=== PATIENT | male | born 1965 | race African-American/Black ===

== ENCOUNTER 2018-01-09 22:59 | Emergency (ER) | payer BC ==
[2018-01-10] MEDS ORDERED: KETOROLAC 30 MG/ML INJ ONE (00:38)
[2018-01-10] MEDS ORDERED: NA CHLORIDE 0.9% 1,000 ML ONE (00:39)
[2018-01-10 00:57] LABS: Absolute Lymphocytes (CBC) 2.3 K/uL (0.7-4.9); Absolute Monocytes 0.8 K/uL (0.1-1.3); Absolute Neutrophil 5.3 K/uL (1.8-8.0); Basophils % 0.9 % (0-1.3); Eosinophils % 4.2 % (0-4.4); Hematocrit 43.4 % (39.6-49.0); Lymphocytes % 26.2 % (15.3-44.8); MCH 28.8 pg (27.0-35.0); MCV 86.5 fL (80-100); MPV 9.4 fL (7.6-11.3); Monocytes % 8.6 % (3.3-12.3); RBC Red Blood Cell Count 5.01 M/uL (4.33-5.43)
[2018-01-10 01:11] LABS: Urine Blood NEGATIVE (NEG); Urine Glucose NEGATIVE (NEG); Urine Protein NEGATIVE (NEG); Urine Specific Gravity >1.030 (1.005-1.030)
[2018-01-10 01:21] LABS: Bicarbonate 26 mEq/L (21-31); Glucose Level 101 mg/dL (65-120); Lipase 32 U/L (22-51); Potassium 3.9 mEq/L (3.6-5.0); Sodium Level 139 mEq/L (135-145)
[2018-01-10 01:23] LABS: Urine Bacteria <20 /HPF (NONE SEEN); Urine RBC <5 /HPF (NONE SEEN)
[2018-01-10 01:24] LABS: Urine Culture Reflex Order NOT NEEDED
[2018-01-10 01:27] LABS: ALT/SGPT 29 IU/L (10-60); AST/SGOT 31 IU/L (10-42); Alkaline Phosphatase 53 IU/L (42-121); Amylase Level 97 U/L (28-100); BUN Blood Urea Nitrogen 20 mg/dL (6-20); Bilirubin Direct < 0.1 mg/dL (0-0.2); Bilirubin Total 0.4 mg/dL (0.3-1.2); Protein, Total 6.9 g/dL (6.0-8.3)
--- NOTE | 2018-01-10 03:14 | ER ---
Nurse's Notes [facility] Name: Sheng Dominguez Age: 52 yrs Sex: Male : 1965 Arrival Date: 01/09/2018 Time: 23:00 Bed 8 Private MD: Diagnosis: Low back pain Presentation: 01/09 23:22 Presenting complaint: Patient states: back and R flank pain since 1999 this evening. aa1 Transition of care: patient was not received from another setting of care. Onset of symptoms was January 09, 2018. Initial Sepsis Screen: Does the patient meet any 2 criteria? No. Patient's initial sepsis screen is negative. Does the patient have a suspected source of infection? No. Patient's initial sepsis screen is negative. Care prior to arrival: None. 23:22 Method Of Arrival: Ambulatory aa1 23:22 Acuity: SRAVAN 3 aa1 Triage Assessment: 23:22 General: Appears in no apparent distress. comfortable, Behavior is calm, cooperative, aa1 appropriate for age. Historical: - Allergies: 23:22 No Known Allergies; aa1 - Home Meds: 23:22 amlodipine oral [Active]; aa1 - PMHx: 23:22 CVA; Hypertension; aa1 - PSHx: 23:22 None; aa1 - Immunization history:: Flu vaccine is not up to date. - Social history:: Smoking status: Patient/guardian denies using tobacco. Screenin/14 00:04 Abuse screen: Denies threats or abuse. Denies injuries from another. Nutritional ao screening: No deficits noted. Tuberculosis screening: No symptoms or risk factors identified. Fall Risk None identified. Assessment: 00:02 General: Appears in no apparent distress. comfortable. Pain: Complains of pain in right ao side flank. Neuro: Level of Consciousness is awake, alert, obeys commands, Oriented to person, place, time, situation, Appropriate for age Moves all extremities. Speech is normal, Facial symmetry appears normal. Cardiovascular: Patient's skin is warm and dry. Respiratory: Airway is patent Respiratory effort is even, unlabored, Respiratory pattern is regular, symmetrical. GI: Abdomen is non-distended. GI: Reports nausea. : Reports urinary frequency. EENT: No signs and/or symptoms were reported regarding the EENT system. Derm: Skin is intact, Skin is pink, warm \T\ dry. Skin temperature is warm. Musculoskeletal: Range of motion: intact in all extremities. 01:10 Reassessment: Patient appears in no apparent distress at this time. Patient and/or ao family updated on plan of care and expected duration. Pain level reassessed. Patient is alert, oriented x 3, equal unlabored respirations, skin warm/dry/pink. Waiting on CT results. 02:16 Reassessment: Patient appears in no apparent distress at this time. Patient and/or ao family updated on plan of care and expected duration. Pain level reassessed. Patient is alert, oriented x 3, equal unlabored respirations, skin warm/dry/pink. Waiting on dispo. 03:20 Reassessment: Patient appears in no apparent distress at this time. Patient and/or ao family updated on plan of care and expected duration. Pain level reassessed. Patient is alert, oriented x 3, equal unlabored respirations, skin warm/dry/pink. 03:56 Reassessment: Patient DC home. Patient understand the POC and to follow up with PCP. ao Vital Signs: 01/09 23:22 BP 147 / 89; Pulse 58; Resp 18; Temp 97.4; Pulse Ox 98% on R/A; Weight 113.4 kg; Height aa1 6 ft. 1 in. (185.42 cm); Pain 8/10; 01/10 01:10 BP 137 / 82; Pulse 63; Resp 14; Pulse Ox 99% on R/A; Pain 0/10; ao 02:30 BP 138 / 62; Pulse 62; Resp 18; Pulse Ox 99% on R/A; ao 03:56 BP 140 / 59; Pulse 55; Resp 18; Pulse Ox 100% on R/A; Pain 6/10; ao 01/09 23:22 Body Mass Index 32.98 (113.40 kg, 185.42 cm) aa1 ED Course: 01/09 23:00 Patient arrived in ED. ds1 23:22 Triage completed. aa1 23:22 Arm band placed on right wrist. Patient placed in waiting room, Patient notified of aa1 wait time. 23:50 Rony Avery, GEORGIE is Primary Nurse. ao 01/10 00:03 Lambert Sanchez MD is Attending Physician. tw4 00:05 Patient has correct armband on for positive identification. Pulse ox on. NIBP on. ao 00:41 Inserted saline lock: 20 gauge in right forearm, using aseptic technique. Blood ao collected. 01:15 Stone Protocol In Process Unspecified. EDMS 01:47 CT completed. Patient tolerated procedure well. Patient moved to CT via wheelchair. Patient moved back from CT. 03:55 No provider procedures requiring assistance completed. IV discontinued, intact, ao bleeding controlled, No redness/swelling at site. Pressure dressing applied. Administered Medications: 00:42 Drug: NS 0.9% 1000 ml Route: IV; Rate: 1 bolus; Site: right forearm; ao 00:43 Drug: TORadol 30 mg Route: IVP; Site: right forearm; ao Outcome: 03:13 Discharge ordered by . tw4 03:55 Discharged to home ambulatory. ao 03:55 Condition: stable 03:55 Discharge instructions given to patient, Instructed on discharge instructions, follow up and referral plans. Demonstrated understanding of instructions, follow-up care, medications, Prescriptions given X 3. 03:57 Patient left the ED. ao Signatures: Dispatcher [employer] EDHellen Bonner, RN RN Dimitry Bedolla Demi ds1 Rony Avery RN RN ao Wadley, Terrence, MD MD tw4
--- NOTE | 2018-01-10 03:14 | EDPHYS ---
Physician Documentation [facility] Name: Sheng Dominguez Age: 52 yrs Sex: Male : 1965 Arrival Date: 01/09/2018 Time: 23:00 Bed 8 Private MD: ED Physician Lambert Sanchez HPI: 01/10 00:36 This 52 yrs old Black Male presents to ER via Ambulatory with complaints of Back Pain, tw4 Side Pain. 00:36 The patient presents with pain that is acute, with no known mechanism of injury. The tw4 symptoms are located in the low back. Onset: The symptoms/episode began/occurred yesterday. The pain radiates to the groin, right femoral area and right inguinal area. Associated signs and symptoms: The patient has no apparent associated signs or symptoms. The problem was sustained without known cause, from unknown cause. Modifying factors: The patient symptoms are alleviated by rest, the patient symptoms are aggravated by lifting, movement. The patient has not experienced similar symptoms in the past. Historical: - Allergies: 01/09 23:22 No Known Allergies; aa1 - Home Meds: 23:22 amlodipine oral [Active]; aa1 - PMHx: 23:22 CVA; Hypertension; aa1 - PSHx: 23:22 None; aa1 - Immunization history:: Flu vaccine is not up to date. - Social history:: Smoking status: Patient/guardian denies using tobacco. ROS: 01/10 00:36 Constitutional: Negative for fever, chills, and weight loss, Cardiovascular: Negative tw4 for chest pain, palpitations, and edema, Respiratory: Negative for shortness of breath, cough, wheezing, and pleuritic chest pain, Abdomen/GI: Negative for abdominal pain, nausea, vomiting, diarrhea, and constipation. MS/Extremity: Negative for injury and deformity, Skin: Negative for injury, rash, and discoloration, Neuro: Negative for headache, weakness, numbness, tingling, and seizure. Back: Positive for pain with movement, flank pain, on the right, radiated pain. Back: Positive for Negative for injury or acute deformity. Exam: 00:36 Constitutional: This is a well developed, well nourished patient who is awake, alert, tw4 and in no acute distress. Head/Face: Normocephalic, atraumatic. Chest/axilla: Normal chest wall appearance and motion. Nontender with no deformity. No lesions are appreciated. Cardiovascular: Regular rate and rhythm with a normal S1 and S2. No gallops, murmurs, or rubs. Normal PMI, no JVD. No pulse deficits. Respiratory: Lungs have equal breath sounds bilaterally, clear to auscultation and percussion. No rales, rhonchi or wheezes noted. No increased work of breathing, no retractions or nasal flaring. Abdomen/GI: Soft, non-tender, with normal bowel sounds. No distension or tympany. No guarding or rebound. No evidence of tenderness throughout. 00:36 Back: pain, that is mild, ROM is normal, normal spinal alignment noted, CVA tenderness, is noted on the right. Vital Signs: 01/09 23:22 BP 147 / 89; Pulse 58; Resp 18; Temp 97.4; Pulse Ox 98% on R/A; Weight 113.4 kg; Height aa1 6 ft. 1 in. (185.42 cm); Pain 8/10; 01/10 01:10 BP 137 / 82; Pulse 63; Resp 14; Pulse Ox 99% on R/A; Pain 0/10; ao 02:30 BP 138 / 62; Pulse 62; Resp 18; Pulse Ox 99% on R/A; ao 03:56 BP 140 / 59; Pulse 55; Resp 18; Pulse Ox 100% on R/A; Pain 6/10; ao 01/09 23:22 Body Mass Index 32.98 (113.40 kg, 185.42 cm) aa1 MDM: 00:03 Patient medically screened. [facility] 05:27 Data reviewed: vital signs, nurses notes. Counseling: I had a detailed discussion with [facility] the patient and/or guardian regarding: the historical points, exam findings, and any diagnostic results supporting the discharge/admit diagnosis, lab results, radiology results. Medication response: Toradol markedly relieved the patient's pain. Response to treatment: the patient's symptoms have markedly improved after treatment, and as a result, I will discharge patient. Special discussion: I discussed with the patient/guardian in detail that at this point there is no indication for admission to the hospital. It is understood, however, that if the symptoms persist or worsen the patient needs to return immediately for re-evaluation. 01/10 00:10 Order name: Amylase, Serum tw4 01/10 00:10 Order name: Basic Metabolic Panel tw4 01/10 00:10 Order name: CBC with Diff 4 01/10 00:10 Order name: Creatinine for Radiology tw4 01/10 00:10 Order name: Hepatic Function tw4 01/10 00:10 Order name: Lipase tw4 01/10 00:10 Order name: Urine Microscopic Only tw4 01/10 00:10 Order name: IV Saline Lock; Complete Time: 00:43 tw4 01/10 00:10 Order name: Labs collected and sent; Complete Time: 00:43 tw4 01/10 00:17 Order name: Urine Dipstick--Ancillary (enter results) [facility] 01/10 00:37 Order name: Stone Protocol [facility] 01/10 00:10 Order name: Urine Dipstick-Ancillary (obtain specimen); Complete Time: 00:43 tw4 Administered Medications: 00:42 Drug: NS 0.9% 1000 ml Route: IV; Rate: 1 bolus; Site: right forearm; ao 00:43 Drug: TORadol 30 mg Route: IVP; Site: right forearm; ao Disposition: 01/10/18 03:13 Discharged to Home. Impression: Low back pain. - Condition is Stable. - Discharge Instructions: Back Pain, Adult, Musculoskeletal Pain, Pain Without a Known Cause, Back Pain, Adult, [id number]. - Prescriptions for Ibuprofen 800 mg Oral Tablet - take 1 tablet by ORAL route every 8 hours As needed take with food; 30 tablet. Tylenol- Codeine #3 300-30 mg Oral Tablet - take 2 tablet by ORAL route every 6 hours As needed; 6 tablet. Cyclobenzaprine 10 mg Oral Tablet - take 1 tablet by ORAL route every 8 hours As needed; 30 tablet. - Medication Reconciliation Form, Thank You Letter, Antibiotic Education, Prescription Opioid Use form. - Follow up: Private Physician; When: Upon discharge from the Emergency Department; Reason: Recheck today's complaints, Continuance of care, Re-evaluation by your physician. - Problem is new. - Symptoms have improved. Signatures: Dispatcher [employer] Hellen Clark RN RN aa1 Rony Avery RN RN ao Wadley, Terrence, MD MD tw4 Corrections: (The following items were deleted from the chart) 00:37 00:27 Abdomen Pelvis Wo Con+CT.RAD.BRZ ordered. EDMS EDMS 03:57 03:13 01/10/2018 03:13 Discharged to Home. Impression: Low back pain. Condition is ao Stable. Forms are Medication Reconciliation Form, Thank You Letter, Antibiotic Education, Prescription Opioid Use. Follow up: Private Physician; When: Upon discharge from the Emergency Department; Reason: Recheck today's complaints, Continuance of care, Re-evaluation by your physician. Problem is new. Symptoms have improved. tw4
--- NOTE | 2018-01-10 08:34 | RAD REPORT ---
EXAM DESCRIPTION: CT - Stone Protocol - 01/10/2018 3:42 am CLINICAL HISTORY: Flank pain. COMPARISON: 07/28/2016 TECHNIQUE: Axial images were obtained without oral or IV contrast. Lack of contrast limits solid org an and vascular assessment. The [id number] spans the entirety of the system partially obscuring uppermost abdomen and lung bases. Coronal reformatted images were obtained and reviewed. All CT scans are performed using dose optimization technique as appropriate and may include automated exposure control or mA/KV adjustment according to patient size. FINDINGS: The lower lung white are clear. Imaged portions of the liver and spleen show no suspicious findings on non-contrast imaging. The panc reas and adrenal glands are normal. No pathologic lymphadenopathy in the abdomen or pelvis. No urinary tract stones or obstructive uropathy. No bowel obstruction, free air, free fluid or abscess. Normal appendix noted. Chronic bilateral L5-S1 spondylolysis. IMPRESSION: No urinary tract stones or obstructive uropathy.
== END 2018-01-10 03:57 | disposition home or self-care (01) ==
LOC: ER 22:59
DX: M54.5 Low back pain (principal); I10 Essential (primary) hypertension; Z86.73 Personal history of transient ischemic attack (TIA), and cerebral infarction without residual deficits
CPT/HCPCS: 36415; 74176; 76377; 80048; 80076; 81003; 81015; 82150; 83690; 85025; 96374; 99284; J7030

== ENCOUNTER 2019-01-29 21:28 | Emergency (ER) | payer BC ==
[2019-01-29] MEDS ORDERED: CYCLOBENZAPRINE 10 MG TAB ONE (22:42)
[2019-01-29] MEDS ORDERED: HYDROCODONE/APAP 10/325 TAB ONE (22:43)
--- NOTE | 2019-01-29 23:00 | EDPHYS ---
Physician Documentation [facility] Name: Sheng Dominguez Age: 53 yrs Sex: Male : 1965 Arrival Date: 01/29/2019 Time: 21:29 Bed 2 Private MD: ED Physician Jose Angel Campos HPI: 01/29 22:35 This 53 yrs old Black Male presents to ER via Ambulatory with complaints of Low Back pm1 Pain. 22:35 The patient presents with pain that is acute. The symptoms are located in the low back. pm1 The pain does not radiate. The problem was sustained playing sports, softball. Onset: The symptoms/episode began/occurred 1 week(s) ago. Modifying factors: The patient symptoms are alleviated by remaining still, specific position, the patient symptoms are aggravated by movement. Associated signs and symptoms: Pertinent negatives: abdominal pain, chest pain, dysuria, fever, nausea, numbness, tingling, vomiting, weakness. Severity of symptoms: in the emergency department the symptoms are unchanged. The patient has not experienced similar symptoms in the past. The patient has not recently seen a physician. Historical: - Allergies: 21:45 No Known Allergies; ak1 - Home Meds: 21:45 amlodipine oral [Active]; ak1 - PMHx: 21:45 CVA; Hypertension; ak1 - PSHx: 21:45 hardware in right shoulder; ak1 - Immunization history:: Adult Immunizations unknown. - Social history:: Smoking status: Patient/guardian denies using tobacco. - Ebola Screening: : No symptoms or risks identified at this time. ROS: 22:35 Constitutional: Negative for fever, chills, and weight loss, Eyes: Negative for injury, pm1 pain, redness, and discharge, ENT: Negative for injury, pain, and discharge, Neck: Negative for injury, pain, and swelling, Cardiovascular: Negative for chest pain, palpitations, and edema, Respiratory: Negative for shortness of breath, cough, wheezing, and pleuritic chest pain, Abdomen/GI: Negative for abdominal pain, nausea, vomiting, diarrhea, and constipation. 22:35 : Negative for injury, bleeding, discharge, and swelling, MS/Extremity: Negative for injury and deformity, Skin: Negative for injury, rash, and discoloration, Neuro: Negative for headache, weakness, numbness, tingling, and seizure. 22:35 Back: Positive for pain with movement, of the left low back and right low back, Negative for decreased range of motion. Exam: 22:35 Constitutional: This is a well developed, well nourished patient who is awake, alert, pm1 and in no acute distress. Head/Face: Normocephalic, atraumatic. Eyes: Pupils equal round and reactive to light, extra-ocular motions intact. Lids and lashes normal. Conjunctiva and sclera are non-icteric and not injected. Cornea within normal limits. Periorbital areas with no swelling, redness, or edema. ENT: Nares patent. No nasal discharge, no septal abnormalities noted. Tympanic membranes are normal and external auditory canals are clear. Oropharynx with no redness, swelling, or masses, exudates, or evidence of obstruction, uvula midline. Mucous membranes moist. Neck: Trachea midline, no thyromegaly or masses palpated, and no cervical lymphadenopathy. Supple, full range of motion without nuchal rigidity, or vertebral point tenderness. No Meningismus. Chest/axilla: Normal chest wall appearance and motion. Nontender with no deformity. No lesions are appreciated. Cardiovascular: Regular rate and rhythm with a normal S1 and S2. No gallops, murmurs, or rubs. Normal PMI, no JVD. No pulse deficits. Respiratory: Lungs have equal breath sounds bilaterally, clear to auscultation and percussion. No rales, rhonchi or wheezes noted. No increased work of breathing, no retractions or nasal flaring. Abdomen/GI: Soft, non-tender, with normal bowel sounds. No distension or tympany. No guarding or rebound. No evidence of tenderness throughout. 22:35 Skin: Warm, dry with normal turgor. Normal color with no rashes, no lesions, and no evidence of cellulitis. MS/ Extremity: Pulses equal, no cyanosis. Neurovascular intact. Full, normal range of motion. 22:35 Back: normal spinal alignment noted, vertebral tenderness, is not appreciated, muscle spasm, is appreciated in the left low back and right low back. 22:35 Neuro: Orientation: is normal, Motor: is normal, moves all fours, strength is normal, strength is 5/5 in all extremities, Sensation: is normal, no obvious gross deficits, Gait: is steady, at a normal pace, without difficulty. Vital Signs: 21:45 BP 157 / 105; Pulse 73; Resp 16; Temp 97.6(O); Pulse Ox 96% on R/A; Weight 113.4 kg ak1 (R); Height 6 ft. 1 in. (185.42 cm) (R); Pain 8/10; 22:33 BP 143 / 89; Pulse 70; Resp 16; Temp 97.8; Pulse Ox 96% on R/A; ak1 01/30 01:53 BP 133 / 86; Pulse 55; Resp 14; Temp 98.1; Pulse Ox 100% on R/A; Pain 0/10; ak1 01/29 21:45 Body Mass Index 32.98 (113.40 kg, 185.42 cm) ak1 MDM: 01/29 22:11 Patient medically screened. pm1 22:15 Data reviewed: vital signs. Data interpreted: Pulse oximetry: on room air is 96 %. pm1 Interpretation: normal. 22:58 Counseling: I had a detailed discussion with the patient and/or guardian regarding: the pm1 historical points, exam findings, and any diagnostic results supporting the discharge/admit diagnosis, lab results, the need for outpatient follow up, to return to the emergency department if symptoms worsen or persist or if there are any questions or concerns that arise at home. 01/29 23:06 Order name: CBC with Diff; Complete Time: 00:04 pm1 01/29 23:06 Order name: BMP; Complete Time: 00:32 pm1 01/29 23:06 Order name: CT Stone Protocol pm1 01/29 23:12 Order name: Urine Dipstick--Ancillary (enter results); Complete Time: 00:51 2 01/29 22:16 Order name: Urine Dipstick-Ancillary (obtain specimen); Complete Time: 23:08 pm1 Administered Medications: 22:32 Drug: Flexeril 10 mg Route: PO; ak1 23:07 Follow up: Response: No adverse reaction ak1 22:32 Drug: [place] 10 mg-325 mg 1 tabs Route: PO; ak1 23:08 Follow up: Response: No adverse reaction ak1 Disposition: 01/30 01:56 Co-signature as Attending Physician, Jose Angel Campos MD. pkl Disposition: 01/30/19 01:34 Discharged to Home. Impression: Low back pain. - Condition is Stable. - Discharge Instructions: Back Pain, Adult, Musculoskeletal Pain, Back Injury Prevention, [id number]. - Prescriptions for Naprosyn 500 mg Oral Tablet - take 1 tablet by ORAL route 2 times per day take with food; 30 tablet. Tylenol- Codeine #3 300-30 mg Oral Tablet - take 2 tablets by ORAL route every 6 hours As needed; 20 tablet. Cyclobenzaprine 10 mg Oral Tablet - take 1 tablet by ORAL route every 8 hours As needed; 30 tablet. - Medication Reconciliation Form, Thank You Letter, Antibiotic Education, Prescription Opioid Use form. - Follow up: Emergency Department; When: As needed; Reason: Worsening of condition. Follow up: Private Physician; When: 2 - 3 days; Reason: Recheck today's complaints, Continuance of care, Re-evaluation by your physician. - Problem is new. - Symptoms have improved. Signatures: Dispatcher [employer] EDMS Jose Angel Campos MD MD pkl Krenek, Amber RN RN ak1 Porfirio Rubin, LOR[employer]EL[employer] pm1 Corrections: (The following items were deleted from the chart) 01/29 23:06 22:59 01/29/2019 22:59 Discharged to Home. Impression: Low back pain; Muscle spasm of pm1 back. Condition is Stable. Forms are Medication Reconciliation Form, Thank You Letter, Antibiotic Education, Prescription Opioid Use. Follow up: Emergency Department; When: As needed; Reason: Worsening of condition. Follow up: Private Physician; When: 2 - 3 days; Reason: Recheck today's complaints, Continuance of care, Re-evaluation by your physician. Problem is new. Symptoms have improved. pm1 01/30 01:55 01:34 01/30/2019 01:34 Discharged to Home. Impression: Low back pain. Condition is ak1 Stable. Forms are Medication Reconciliation Form, Thank You Letter, Antibiotic Education, Prescription Opioid Use. Follow up: Emergency Department; When: As needed; Reason: Worsening of condition. Follow up: Private Physician; When: 2 - 3 days; Reason: Recheck today's complaints, Continuance of care, Re-evaluation by your physician. Problem is new. Symptoms have improved. pm1
--- NOTE | 2019-01-29 23:00 | ER ---
Nurse's Notes [facility] Name: Sheng Dominguez Age: 53 yrs Sex: Male : 1965 Arrival Date: 01/29/2019 Time: 21:29 Bed 2 Private MD: Diagnosis: Low back pain Presentation: 01/29 21:43 Presenting complaint: Patient states: lower back pain since Wednesday. pt stated ak1 increased pain Wednesday. Transition of care: patient was not received from another setting of care. Onset of symptoms is unknown. Risk Assessment: Do you want to hurt yourself or someone else? Patient reports no desire to harm self or others. Initial Sepsis Screen: Does the patient meet any 2 criteria? No. Patient's initial sepsis screen is negative. Does the patient have a suspected source of infection? No. Patient's initial sepsis screen is negative. Note pt stated he is not taking his blood pressure medication because it makes him sleepy. Care prior to arrival: None. 21:43 Method Of Arrival: Ambulatory ak1 21:43 Acuity: SRAVAN 4 ak1 Triage Assessment: 21:45 General: Appears in no apparent distress. Behavior is calm, cooperative. Pain: ak1 Complains of pain in lumbar area, sacrum, left low back and right low back. Historical: - Allergies: 21:45 No Known Allergies; ak1 - Home Meds: 21:45 amlodipine oral [Active]; ak1 - PMHx: 21:45 CVA; Hypertension; ak1 - PSHx: 21:45 hardware in right shoulder; ak1 - Immunization history:: Adult Immunizations unknown. - Social history:: Smoking status: Patient/guardian denies using tobacco. - Ebola Screening: : No symptoms or risks identified at this time. Screenin:45 Abuse screen: Denies threats or abuse. Denies injuries from another. Nutritional ak1 screening: No deficits noted. Tuberculosis screening: No symptoms or risk factors identified. Fall Risk None identified. Assessment: 22:20 General: Appears in no apparent distress. Behavior is calm, cooperative. Pain: ak1 Complains of pain in back and right low back and left low back and sacrum and lumbar area. Neuro: Level of Consciousness is awake, alert, obeys commands, Oriented to person, place, time, situation, Returns Supervisor are equal bilaterally Moves all extremities. Gait is steady, Speech is normal, Facial symmetry appears normal. Cardiovascular: No deficits noted. Respiratory: No deficits noted. GI: No signs and/or symptoms were reported involving the gastrointestinal system. : No signs and/or symptoms were reported regarding the genitourinary system. EENT: No signs and/or symptoms were reported regarding the EENT system. Derm: No signs and/or symptoms reported regarding the dermatologic system. Musculoskeletal: Range of motion: intact in all extremities, Reports pain in sacrum and lumbar area pt denies injury. 23:42 Reassessment: Patient appears in no apparent distress at this time. No changes from ak1 previously documented assessment. pt resting with eyes closed in ER2, resp even and unlabored. 01/30 01:53 Reassessment: Patient appears in no apparent distress at this time. No changes from ak1 previously documented assessment. Patient and/or family updated on plan of care and expected duration. Pain level reassessed. Patient is alert, oriented x 3, equal unlabored respirations, skin warm/dry/pink. pt with steady gait at discharge. Patient denies pain at this time. Patient states feeling better. Patient states symptoms have improved. Vital Signs: 01/29 21:45 BP 157 / 105; Pulse 73; Resp 16; Temp 97.6(O); Pulse Ox 96% on R/A; Weight 113.4 kg ak1 (R); Height 6 ft. 1 in. (185.42 cm) (R); Pain 8/10; 22:33 BP 143 / 89; Pulse 70; Resp 16; Temp 97.8; Pulse Ox 96% on R/A; ak1 01/30 01:53 BP 133 / 86; Pulse 55; Resp 14; Temp 98.1; Pulse Ox 100% on R/A; Pain 0/10; ak1 01/29 21:45 Body Mass Index 32.98 (113.40 kg, 185.42 cm) ak1 ED Course: 01/29 21:29 Patient arrived in ED. am2 21:44 Triage completed. ak1 21:45 Arm band placed on Patient placed in an exam room, on a stretcher, on pulse oximetry, ak1 Patient notified of wait time. 21:46 Patient has correct armband on for positive identification. Bed in low position. Call ak1 light in reach. Side rails up X 1. Pulse ox on. NIBP on. 22:11 Porfirio Rubin, LORA is PHCP. pm1 22:11 Jose Angel Campos MD is Attending Physician. pm1 22:20 Brooklynn Mascorro, RN is Primary Nurse. ak1 23:42 Initial lab(s) drawn, by wharf labourer, sent to lab. ak1 01/30 00:50 CT Stone Protocol In Process Unspecified. EDMS 01:54 No provider procedures requiring assistance completed. Patient did not have IV access ak1 during this emergency room visit. Administered Medications: 01/29 22:32 Drug: Flexeril 10 mg Route: PO; ak1 23:07 Follow up: Response: No adverse reaction ak1 22:32 Drug: Circle 10 mg-325 mg 1 tabs Route: PO; ak1 23:08 Follow up: Response: No adverse reaction ak1 Outcome: 22:59 Discharge ordered by MD. pm1 0603 01:34 Discharge ordered by MD. pm1 01:54 Discharged to home ambulatory, with family. ak1 01:54 Condition: good 01:54 Discharge instructions given to patient, family, Instructed on discharge instructions, follow up and referral plans. no drinking with medication, no driving heavy equipment, medication usage, Demonstrated understanding of instructions, follow-up care, medications, Prescriptions given X 3. 01:55 Patient left the ED. ak1 Signatures: Dispatcher [employer] EDND Brooklynn Mascorro, RN RN ak1 Porfirio Rubin, LORA CRUTCH MAKER pm1 Rowena Vargas am2
[2019-01-29 23:25] LABS: Absolute Lymphocytes (CBC) 2.1 K/uL (0.7-4.9); Absolute Monocytes 0.8 K/uL (0.1-1.3); Basophils % 0.7 % (0-1.3); Eosinophils % 3.7 % (0-4.4); Hematocrit 44.4 % (39.6-49.0); Lymphocytes % 25.9 % (15.3-44.8); MPV 9.5 fL (7.6-11.3); Monocytes % 9.1 % (3.3-12.3)
[2019-01-30 00:27] LABS: BUN Blood Urea Nitrogen 12 mg/dL (7-18); Bicarbonate 24 mmol/L (21-32); Glucose Level 128 mg/dL (74-106); Potassium 4.2 mmol/L (3.5-5.1); Sodium Level 141 mmol/L (136-145)
[2019-01-30 00:47] LABS: Urine Blood NEGATIVE (NEG); Urine Glucose NEGATIVE (NEG); Urine Specific Gravity 1.025 (1.005-1.030)
[2019-01-30 00:48] LABS: Urine Protein TRACE (NEG)
--- NOTE | 2019-01-30 10:17 | RAD REPORT ---
EXAM DESCRIPTION: CT Abdomen and Pelvis Without Intravenous Contrast CLINICAL HISTORY: The patient is 53 years old and is Male; FLANK PAIN TECHNIQUE: Axial computed tomography images of the abdomen and pelvis without intravenous contrast. Sagittal and coronal reformatted images were created and reviewed. This CT exam was performed usi ng one or more of the following dose reduction techniques: automated exposure control, adjustment o f the mA and/or kV according to patient size, and/or use of iterative reconstruction technique. COMPARISON: CT abdomen and pelvis without contrast dated 01/10/2019. FINDINGS: LUNG BASES: Unremarkable. No mass. No consolidation. ABDOMEN: LIVER: Unremarkable. GALLBLADDER AND BILE DUCTS: Unremarkable. No calcified stones. No ductal dilation. PANCREAS: Unremarkable. No ductal dilation. SPLEEN: Unremarkable. No splenomegaly. ADRENALS: Unremarkable. No mass. KIDNEYS AND URETERS: Unremarkable. No obstructing stones. No hydronephrosis. STOMACH AND BOWEL: Unremarkable. No obstruction. No mucosal thickening. PELVIS: APPENDIX: The appendix is seen and is within normal limits. BLADDER: Unremarkable. No stones. REPRODUCTIVE: Unremarkable as visualized. ABDOMEN and PELVIS: INTRAPERITONEAL SPACE: Unremarkable. No free air. No significant fluid collection. BONES/JOINTS: Bilateral L5 spondylolysis. L3-4 and L4-5 retrolistheses and vacuum phenomenon. No acute fracture. No dislocation. SOFT TISSUES: Small fat-containing umbilical hernia. VASCULATURE: Trace calcification of the common iliac vasculature. No abdominal aortic aneurysm. LYMPH NODES: Unremarkable. No enlarged lymph nodes. IMPRESSION: 1. No acute abdominal or pelvic abnormality. No obstructive uropathy. 2. Bilateral L5 spondylolysis with L3-4 and L4-5 retrolistheses and associated degenerative disc di sease. Electronically signed by: Giovany Mercedes DO 01/30/2019 12:58 AM CDT Due to temporary technical issues with the PACS/Fluency reporting system, reports are being signed by the in house radiologist as a courtesy to ensure prompt reporting. The interpreting radiologist is jey rebollar responsible for the content of the report.
== END 2019-01-30 01:55 | disposition home or self-care (01) ==
LOC: ER 21:28
DX: M54.5 Low back pain (principal); I10 Essential (primary) hypertension; Z86.73 Personal history of transient ischemic attack (TIA), and cerebral infarction without residual deficits
CPT/HCPCS: 36415; 74176; 76377; 80048; 81003; 85025; 99284

== ENCOUNTER 2020-02-16 09:43 | Emergency (ER) | payer BC ==
--- NOTE | 2020-02-16 11:05 | EDPHYS ---
Physician Documentation [facility] Name: Sheng Dominguez Age: 54 yrs Sex: Male : 1965 Arrival Date: 02/16/2020 Time: 09:45 Bed Ultrasound Private MD: ED Physician Dallas Escobar HPI: 02/15 10:35 This 54 yrs old Black Male presents to ER via Ambulatory with complaints of Knee Pain, kb Leg Swelling. 10:35 The patient presents with pain, swelling, tenderness. The complaints affect the right kb calf and posterior aspect of right knee. Context: The problem was sustained outdoors, resulted from an unknown cause, the patient can fully bear weight, the patient is able to ambulate, Problem is a result from a previous injury: No. Onset: The symptoms/episode began/occurred 3 day(s) ago. Modifying factors: The symptoms are alleviated by nothing. the symptoms are aggravated by weight bearing. Associated signs and symptoms: Pertinent positives: swelling. Treatment prior to arrival includes: no previous treatment. Severity of symptoms: At their worst the symptoms were mild, in the emergency department the symptoms are unchanged. The patient has not experienced similar symptoms in the past. The patient has not recently seen a physician. Pt reports he was jogging 3 days ago and felt a tightness behind knee and calf on right side. States he came in because he was concerned about a clot. Denies bony tenderness or pain. . Historical: - Allergies: 09:56 No Known Allergies; hb - Home Meds: 09:56 amlodipine oral [Active]; hb - PMHx: 09:56 CVA; Hypertension; hb - PSHx: 09:56 hardware in right shoulder; hb - Immunization history:: Adult Immunizations up to date. - Social history:: Smoking status: Patient denies any tobacco usage or history of. ROS: 10:34 Constitutional: Negative for fever, chills, and weight loss, Cardiovascular: Negative kb for chest pain, palpitations, and edema, Respiratory: Negative for shortness of breath, cough, wheezing, and pleuritic chest pain, Abdomen/GI: Negative for abdominal pain, nausea, vomiting, diarrhea, and constipation, Back: Negative for injury and pain, Skin: Negative for injury, rash, and discoloration, Neuro: Negative for headache, weakness, numbness, tingling, and seizure. 10:34 MS/extremity: Positive for pain, swelling, tenderness, of the posterior aspect of right knee and right calf. Exam: 10:34 Constitutional: This is a well developed, well nourished patient who is awake, alert, kb and in no acute distress. Head/Face: Normocephalic, atraumatic. Chest/axilla: Normal chest wall appearance and motion. Nontender with no deformity. No lesions are appreciated. Cardiovascular: Regular rate and rhythm with a normal S1 and S2. No gallops, murmurs, or rubs. Normal PMI, no JVD. No pulse deficits. Respiratory: Lungs have equal breath sounds bilaterally, clear to auscultation and percussion. No rales, rhonchi or wheezes noted. No increased work of breathing, no retractions or nasal flaring. Abdomen/GI: Soft, non-tender, with normal bowel sounds. No distension or tympany. No guarding or rebound. No evidence of tenderness throughout. Skin: Warm, dry with normal turgor. Normal color with no rashes, no lesions, and no evidence of cellulitis. Neuro: Awake and alert, GCS 15, oriented to person, place, time, and situation. Cranial nerves II-XII grossly intact. Motor strength 5/5 in all extremities. Sensory grossly intact. Cerebellar exam normal. Normal gait. 10:34 Musculoskeletal/extremity: Extremities: grossly normal except: noted in the right calf and posterior aspect of right knee: pain, swelling, tenderness, ROM: no acute changes, Circulation is intact in all extremities. Sensation intact. DVT Exam: negative Homans' sign noted on exam, no appreciated bluish discoloration, no erythema, no increased warmth, pain, swelling, tenderness. Vital Signs: 09:54 BP 144 / 82; Pulse 51; Resp 16; Temp 98.1; Pulse Ox 100% on R/A; Weight 108.86 kg; hb Height 6 ft. 1 in. (185.42 cm); Pain 5/10; 09:54 Body Mass Index 31.66 (108.86 kg, 185.42 cm) hb MDM: 09:58 Patient medically screened. kb 10:35 Data reviewed: vital signs, nurses notes. Data interpreted: Pulse oximetry: on room air kb is 100 %. Interpretation: normal. Counseling: I had a detailed discussion with the patient and/or guardian regarding: the historical points, exam findings, and any diagnostic results supporting the discharge/admit diagnosis, radiology results, the need for outpatient follow up, a orthopedic surgeon, to return to the emergency department if symptoms worsen or persist or if there are any questions or concerns that arise at home. 02/15 10:05 Order name: US Extremity Venous Unilateral Ltd Administered Medications: No medications were administered Disposition: 14:58 Co-signature as Attending Physician, Dallas Escobar MD I agree with the assessment and kdr plan of care. Disposition: 02/16/20 11:05 Discharged to Home. Impression: Pain in right lower leg. - Condition is Stable. - Discharge Instructions: Musculoskeletal Pain, Cryotherapy, [id number], Heat Therapy, [id number]. - Prescriptions for Ibuprofen 800 mg Oral Tablet - take 1 tablet by ORAL route every 8 hours As needed take with food; 30 tablet. Cyclobenzaprine 10 mg Oral Tablet - take 1 tablet by ORAL route every 8 hours As needed; 21 tablet. - Work release form, Medication Reconciliation Form, Thank You Letter, Antibiotic Education, Prescription Opioid Use form. - Follow up: Emergency Department; When: As needed; Reason: Worsening of condition. Follow up: Private Physician; When: 2 - 3 days; Reason: Recheck today's complaints, Continuance of care, Re-evaluation by your physician. Signatures: Dispatcher [employer] [facility] Sara Ortiz, MAINTENANCE AIDE-C MAINTENANCE AIDE-Dallas Cardona MD MD [facility] Emily Medina RN RN Angelita Crocker RN RN Corrections: (The following items were deleted from the chart) 10:06 09:59 Knee Right 3 View+RAD.RAD.BRZ ordered. [facility] 10:38 10:35 Pt reports he was jogging 3 days ago and felt a tightness behind knee and calf on kb right side. States he came in because he was concerned about a clot. 11:21 11:05 02/16/2020 11:05 Discharged to Home. Impression: Pain in right lower leg. Condition is Stable. Forms are Medication Reconciliation Form, Thank You Letter, Antibiotic Education, Prescription Opioid Use. Follow up: Emergency Department; When: As needed; Reason: Worsening of condition. Follow up: Private Physician; When: 2 - 3 days; Reason: Recheck today's complaints, Continuance of care, Re-evaluation by your physician. kb
--- NOTE | 2020-02-16 11:05 | ER ---
Nurse's Notes [facility] Name: Sheng Dominguez Age: 54 yrs Sex: Male : 1965 Arrival Date: 02/16/2020 Time: 09:45 Bed Ultrasound Private MD: Diagnosis: Pain in right lower leg Presentation: 02/15 09:54 Chief complaint: Right knee pain 5/10 that started while running 3 days ago. hb Coronavirus screen: Proceed with normal triage. Ebola Screen: No symptoms or risks identified at this time. Initial Sepsis Screen: Does the patient meet any 2 criteria? No. Patient's initial sepsis screen is negative. Does the patient have a suspected source of infection? No. Patient's initial sepsis screen is negative. Risk Assessment: Do you want to hurt yourself or someone else? Patient reports no desire to harm self or others. Onset of symptoms was February 13, 2020. 09:54 Method Of Arrival: Ambulatory hb 09:54 Acuity: SRAVAN 4 hb Historical: - Allergies: 09:56 No Known Allergies; hb - Home Meds: 09:56 amlodipine oral [Active]; hb - PMHx: 09:56 CVA; Hypertension; hb - PSHx: 09:56 hardware in right shoulder; hb - Immunization history:: Adult Immunizations up to date. - Social history:: Smoking status: Patient denies any tobacco usage or history of. Screenin:05 Abuse screen: Denies threats or abuse. Nutritional screening: No deficits noted. Tuberculosis screening: No symptoms or risk factors identified. Fall Risk None identified. Assessment: 10:02 General: Appears in no apparent distress. Behavior is calm, cooperative. Pain: Complains of pain in medial aspect of right knee and right knee Pain radiates to medial aspect of right calf Pain currently is 5 out of 10 on a pain scale. Quality of pain is described as aching. Neuro: Level of Consciousness is awake, alert, Oriented to person, place, time, situation. Cardiovascular: Capillary refill < 3 seconds Patient's skin is warm and dry. Respiratory: Airway is patent Respiratory effort is even, unlabored. GI: Derm: Skin is intact, is healthy with good turgor. Musculoskeletal: Circulation, motion, and sensation intact. Capillary refill < 3 seconds, Range of motion: limited in right knee Reports pain in right knee since 2-3 days. Denies injury, states that the pain just started while running. Vital Signs: 09:54 BP 144 / 82; Pulse 51; Resp 16; Temp 98.1; Pulse Ox 100% on R/A; Weight 108.86 kg; hb Height 6 ft. 1 in. (185.42 cm); Pain 5/10; 09:54 Body Mass Index 31.66 (108.86 kg, 185.42 cm) hb ED Course: 09:45 Patient arrived in ED. as 09:55 Triage completed. 09:56 Angelita Crocker, RN is Primary Nurse. 09:56 Arm band placed on. 09:57 Sara Ortiz FNP-C is PHCP. kb 09:57 Dallas Escobar MD is Attending Physician. kb 10:05 Patient has correct armband on for positive identification. Bed in low position. Call light in reach. 11:15 No provider procedures requiring assistance completed. Patient did not have IV access ah during this emergency room visit. 11:42 US Extremity Venous Unilateral Ltd In Process Unspecified. EDMS Administered Medications: No medications were administered Outcome: 11:05 Discharge ordered by . kb 11:15 Discharged to home ambulatory. 11:15 Condition: good 11:15 Discharge instructions given to patient, Instructed on discharge instructions, follow up and referral plans. medication usage, Demonstrated understanding of instructions, follow-up care, medications, Prescriptions given X 2. 11:21 Patient left the ED. Signatures: Dispatcher [employer] EDMS Sara Ortiz FNP-C FNP-Ckb Martinez, Amelia as Emily Medina RN RN Angelita Crocker, RN RN
[2020-02-16 11:26] VITALS: BP 144/82; TEMP 98.1; O2SAT 100
--- NOTE | 2020-02-16 11:50 | RAD REPORT ---
EXAM DESCRIPTION: US - Extremity Venous Uni Ltd - 02/16/2020 11:41 am CLINICAL HISTORY: PAIN COMPARISON: None. TECHNIQUE: Real-time sonographic evaluation of the right lower extremity deep venous systems was per formed. FINDINGS: Normal compressibility, flow augmentation, phasic flow and spontaneous flow are identified in the right lower extremity common femoral, superficial femoral, popliteal and posterior tibial vei ns. No intraluminal filling defects seen. IMPRESSION: No DVT in the right lower extremity.
== END 2020-02-16 11:21 | disposition home or self-care (01) ==
LOC: ER 09:43
DX: M79.661 Pain in right lower leg (principal); I10 Essential (primary) hypertension
CPT/HCPCS: 93971; 99283

== ENCOUNTER 2020-06-08 03:24 | Emergency (ER) | payer BC ==
[2020-06-08] MEDS ORDERED: METOCLOPRAMIDE 10 MG/2mL INJ ONE (04:26)
[2020-06-08] MEDS ORDERED: DIPHENHYDRAMINE 50 MG/ML VIAL ONE (04:26)
[2020-06-08] MEDS ORDERED: NA CHLORIDE 0.9% 1,000 ML ONE (04:26)
[2020-06-08 04:35] LABS: Basophils % 0.6 % (0-1.3); Hematocrit 42.6 % (39.6-49.0); Lymphocytes % 25.9 % (15.3-44.8); MPV 9.2 fL (7.6-11.3); RBC Red Blood Cell Count 4.89 M/uL (4.33-5.43)
[2020-06-08 04:37] LABS: Protime INR 1.01
[2020-06-08 04:51] LABS: ALT/SGPT 28 U/L (12-78); AST/SGOT 20 U/L (15-37); Alkaline Phosphatase 69 U/L (45-117); BUN Blood Urea Nitrogen 18 mg/dL (7-18); Bicarbonate 27 mmol/L (21-32); Bilirubin Direct < 0.1 mg/dL (0-0.2); Bilirubin Total 0.4 mg/dL (0.2-1.0); Glucose Level 100 mg/dL (74-106); Potassium 3.7 mmol/L (3.5-5.1); Protein, Total 7.2 g/dL (6.4-8.2); Sodium Level 142 mmol/L (136-145)
--- NOTE | 2020-06-08 05:41 | ER ---
Nurse's Notes [facility] Name: Sheng Dominguez Age: 55 yrs Sex: Male : 1965 Arrival Date: 06/08/2020 Time: 03:26 Bed 7 Private MD: Diagnosis: Headache;Hypertension-Medication Noncompliance Presentation: 06/08 03:42 Chief complaint: Patient states: Headache that began about 2 hours ago while patient lp1 was watching TV; States similar headache with CVA in 2012; Denies any weakness, tingling, numbness to extremities. Coronavirus screen: Client denies travel out of the [place] in the last 14 days. At this time, the client does not indicate any symptoms associated with coronavirus-19. Ebola Screen: No symptoms or risks identified at this time. Initial Sepsis Screen: Does the patient meet any 2 criteria? No. Patient's initial sepsis screen is negative. Does the patient have a suspected source of infection? No. Patient's initial sepsis screen is negative. Risk Assessment: Do you want to hurt yourself or someone else? Patient reports no desire to harm self or others. Onset of symptoms was June 08, 2020 at 01:30. 03:42 Method Of Arrival: Ambulatory lp1 03:42 Acuity: SRAVAN 3 lp1 Triage Assessment: 04:00 Pain: Pain began 2 hours ago. lp1 04:15 Headache History: The patient has had previous headaches. lp1 04:32 Pain: Also complains of no other associated symptoms. lp1 Historical: - Allergies: 03:48 No Known Allergies; lp1 - Home Meds: 03:48 amlodipine oral [Active]; lp1 - PMHx: 03:48 CVA; Hypertension; lp1 - PSHx: 03:48 Shoulder sx; lp1 - Immunization history:: Adult Immunizations up to date. - Social history:: Smoking status: Patient denies any tobacco usage or history of. Screenin:49 Abuse screen: Denies threats or abuse. Denies injuries from another. Nutritional lp1 screening: No deficits noted. Tuberculosis screening: No symptoms or risk factors identified. Fall Risk None identified. Assessment: 04:00 General: Appears in no apparent distress. Behavior is appropriate for age. Pain: lp1 Complains of pain in head Pain at worst was 7 out of 10 on a pain scale. Quality of pain is described as aching. Neuro: Level of Consciousness is awake, alert, obeys commands, Oriented to person, place, time, situation, Performance Specialist are equal bilaterally Moves all extremities. Full function Gait is steady, Speech is normal, Facial symmetry appears normal, Pupils are PERRLA, Intact. Cardiovascular: Patient's skin is warm and dry. Respiratory: Respiratory effort is even, unlabored, Breath sounds are clear bilaterally. GI: No signs and/or symptoms were reported involving the gastrointestinal system. : No signs and/or symptoms were reported regarding the genitourinary system. EENT: No signs and/or symptoms were reported regarding the EENT system. Derm: Skin is intact, Skin is dry, Skin is normal. Musculoskeletal: No deficits noted. 05:15 Reassessment: Patient appears in no apparent distress at this time. Patient resting, lp1 eyes closed, respirations unlabored on rounding Patient states feeling better. 05:51 Reassessment: Patient resting at this time; aware of discharge instructions, lp1 demonstrates understanding. 07:05 Reassessment: Patient appears in no apparent distress at this time. Patient and/or ph family updated on plan of care and expected duration. Pain level reassessed. Pt asleep w/ equal and unlabored respirations, awakens easily but remains drowsy and quickly falls back asleep, pt reports that headache has improved and that he drove himself to ED, will allow pt to sleep at this time due to drowsiness, charge nurse notified of delay in d/c. 08:15 Reassessment: Patient appears in no apparent distress at this time. No changes from ph previously documented assessment. 09:16 Reassessment: Patient appears in no apparent distress at this time. Patient and/or ph family updated on plan of care and expected duration. Pain level reassessed. Patient is alert, oriented x 3, equal unlabored respirations, skin warm/dry/pink. Pt d/c home Patient states feeling better. Patient states symptoms have improved. Vital Signs: 03:42 BP 157 / 102; Pulse 66; Resp 18; Temp 98.6(O); Pulse Ox 99% on R/A; Weight 108.86 kg lp1 (R); Height 6 ft. 0 in. (182.88 cm); Pain 7/10; 04:31 BP 155 / 98; Pulse 63; Resp 14; Pulse Ox 98% on R/A; lp1 05:00 BP 142 / 95; Pulse 61; Resp 12; Pulse Ox 97% on R/A; lp1 05:44 BP 137 / 80; Pulse 66; Resp 14; Pulse Ox 99% on R/A; lp1 07:42 BP 128 / 78; Pulse 64; Resp 18; Pulse Ox 98% ; ph 09:17 BP 123 / 83; Pulse 68; Resp 18; Temp 98.0; Pulse Ox 99% on R/A; ph 03:42 Body Mass Index 32.55 (108.86 kg, 182.88 cm) lp1 [place] Coma Score: 05:35 Eye Response: spontaneous(4). Verbal Response: oriented(5). Motor Response: obeys mh7 commands(6). Total: 15. ED Course: 03:26 Patient arrived in ED. ag3 03:29 Robles Ring MD is Attending Physician. mh7 03:42 Tiff Bolanos, RN is Primary Nurse. lp1 03:47 Triage completed. lp1 03:47 Arm band placed on. lp1 03:50 EKG done, by crime lab technician. reviewed by Robles Ring MD. oe 04:00 Patient has correct armband on for positive identification. Bed in low position. Call lp1 light in reach. clinical research monitor on. Pulse ox on. NIBP on. 04:15 Initial lab(s) drawn, by il, sent to lab. Inserted saline lock: 20 gauge in left lp1 antecubital area, using aseptic technique. Blood collected. 04:18 CT Head Brain wo Cont In Process Unspecified. EDMS 05:42 No provider procedures requiring assistance completed. lp1 05:44 IV discontinued, No redness/swelling at site. Pressure dressing applied. lp1 Administered Medications: 04:20 Drug: Reglan 10 mg Route: IVP; Site: right antecubital; lp1 05:44 Follow up: Response: No adverse reaction; Marked relief of symptoms lp1 04:20 Drug: Benadryl 25 mg Route: IVP; Site: right antecubital; lp1 05:44 Follow up: Response: No adverse reaction; Marked relief of symptoms lp1 04:20 Drug: NS 0.9% 1000 ml Route: IV; Rate: 1000 ml; Site: right antecubital; lp1 05:51 Follow up: IV Status: Completed infusion; IV Intake: 1000ml lp1 Intake: 05:51 IV: 1000ml; Total: 1000ml. lp1 Outcome: 05:41 Discharge ordered by MD. chun 05:51 Discharged to home lp1 05:51 Condition: good 05:51 Discharge instructions given to patient, Instructed on discharge instructions, follow up and referral plans. medication usage, Demonstrated understanding of instructions, follow-up care, medications, Prescriptions given X 1. 09:17 Patient left the ED. ph Signatures: Dispatcher [employer] EDMS Tiff Bolanos RN RN 1 Ana Gonzalez RN RN ph Lan Herrera Alice Robles Sadler MD MD mh7
--- NOTE | 2020-06-08 05:41 | EDPHYS ---
Physician Documentation [facility] Name: Sheng Dominguez Age: 55 yrs Sex: Male : 1965 Arrival Date: 06/08/2020 Time: 03:26 Bed 7 Private MD: ED Physician Robles Ring HPI: 06/08 04:00 This 55 yrs old Black Male presents to ER via Ambulatory with complaints of Headache. [facility] 04:00 The patient complains of pain to the forehead and back of head. The patient describes [facility] the headache as intermittent, throbbing, waxing and waning. Onset: The symptoms/episode began/occurred today. 04:01 Onset: The symptoms/episode began/occurred 2 hour(s) ago. Associated signs and [facility] symptoms: Pertinent negatives: altered mental status, dizziness, fever, malaise, nausea, neck stiffness, paresthesias, Photophobia rash, sinus congestion, sinus tenderness, vision changes, vision loss, vomiting, weakness, vertigo. 04:02 Severity of symptoms: At its worst the pain was moderate, earlier today, in the [facility] emergency department the pain has improved, moderately. Headache History: The patient has had previous headaches and this one is similar to previous episodes. The symptoms are alleviated by over the counter pain medication, OTC NSAIDS, the symptoms are aggravated by nothing. Historical: - Allergies: 03:48 No Known Allergies; lp1 - Home Meds: 03:48 amlodipine oral [Active]; lp1 - PMHx: 03:48 CVA; Hypertension; lp1 - PSHx: 03:48 Shoulder sx; lp1 - Immunization history:: Adult Immunizations up to date. - Social history:: Smoking status: Patient denies any tobacco usage or history of. ROS: 04:02 Constitutional: Negative for fever, chills, and weight loss, Eyes: Negative for injury, mh7 pain, redness, and discharge, ENT: Negative for injury, pain, and discharge, Neck: Negative for injury, pain, and swelling, Cardiovascular: Negative for chest pain, palpitations, and edema, Respiratory: Negative for shortness of breath, cough, wheezing, and pleuritic chest pain, Abdomen/GI: Negative for abdominal pain, nausea, vomiting, diarrhea, and constipation, Back: Negative for injury and pain, : Negative for injury, bleeding, discharge, and swelling, MS/Extremity: Negative for injury and deformity, Skin: Negative for injury, rash, and discoloration, Psych: Negative for depression, anxiety, suicide ideation, homicidal ideation, and hallucinations, Allergy/Immunology: Negative for hives, rash, and allergies, Endocrine: Negative for neck swelling, polydipsia, polyuria, polyphagia, and marked weight changes, Hematologic/Lymphatic: Negative for swollen nodes, abnormal bleeding, and unusual bruising. Exam: 04:02 Constitutional: This is a well developed, well nourished patient who is awake, alert, mh7 and in no acute distress. Head/Face: Normocephalic, atraumatic. Eyes: Pupils equal round and reactive to light, extra-ocular motions intact. Lids and lashes normal. Conjunctiva and sclera are non-icteric and not injected. Cornea within normal limits. Periorbital areas with no swelling, redness, or edema. ENT: Nares patent. No nasal discharge, no septal abnormalities noted. Tympanic membranes are normal and external auditory canals are clear. Oropharynx with no redness, swelling, or masses, exudates, or evidence of obstruction, uvula midline. Mucous membranes moist. Neck: Trachea midline, no thyromegaly or masses palpated, and no cervical lymphadenopathy. Supple, full range of motion without nuchal rigidity, or vertebral point tenderness. No Meningismus. Chest/axilla: Normal chest wall appearance and motion. Nontender with no deformity. No lesions are appreciated. Cardiovascular: Regular rate and rhythm with a normal S1 and S2. No gallops, murmurs, or rubs. Normal PMI, no JVD. No pulse deficits. Respiratory: Lungs have equal breath sounds bilaterally, clear to auscultation and percussion. No rales, rhonchi or wheezes noted. No increased work of breathing, no retractions or nasal flaring. Abdomen/GI: Soft, non-tender, with normal bowel sounds. No distension or tympany. No guarding or rebound. No evidence of tenderness throughout. Back: No spinal tenderness. No costovertebral tenderness. Full range of motion. Skin: Warm, dry with normal turgor. Normal color with no rashes, no lesions, and no evidence of cellulitis. MS/ Extremity: Pulses equal, no cyanosis. Neurovascular intact. Full, normal range of motion. Neuro: Awake and alert, GCS 15, oriented to person, place, time, and situation. Cranial nerves II-XII grossly intact. Motor strength 5/5 in all extremities. Sensory grossly intact. Cerebellar exam normal. Normal gait. Psych: Awake, alert, with orientation to person, place and time. Behavior, mood, and affect are within normal limits. Vital Signs: 03:42 BP 157 / 102; Pulse 66; Resp 18; Temp 98.6(O); Pulse Ox 99% on R/A; Weight 108.86 kg lp1 (R); Height 6 ft. 0 in. (182.88 cm); Pain 7/10; 04:31 BP 155 / 98; Pulse 63; Resp 14; Pulse Ox 98% on R/A; lp1 05:00 BP 142 / 95; Pulse 61; Resp 12; Pulse Ox 97% on R/A; lp1 05:44 BP 137 / 80; Pulse 66; Resp 14; Pulse Ox 99% on R/A; lp1 07:42 BP 128 / 78; Pulse 64; Resp 18; Pulse Ox 98% ; ph 09:17 BP 123 / 83; Pulse 68; Resp 18; Temp 98.0; Pulse Ox 99% on R/A; ph 03:42 Body Mass Index 32.55 (108.86 kg, 182.88 cm) lp1 [place] Coma Score: 05:35 Eye Response: spontaneous(4). Verbal Response: oriented(5). Motor Response: obeys mh7 commands(6). Total: 15. MDM: 03:55 Patient medically screened. mh7 05:35 Differential diagnosis: cluster headache, hypertensive headache, intracerebral mh7 hemorrhage, migraine, tension headache. Data reviewed: vital signs, nurses notes, old medical records, lab test result(s), CBC, electrolytes, EKG, radiologic studies, CT scan. Data interpreted: Pulse oximetry: on room air is 98 %. Interpretation: normal. Counseling: I had a detailed discussion with the patient and/or guardian regarding: the historical points, exam findings, and any diagnostic results supporting the discharge/admit diagnosis, the presence of at least one elevated blood pressure reading (>120/80) during this emergency department visit, lab results, radiology results, the need for outpatient follow up, to return to the emergency department if symptoms worsen or persist or if there are any questions or concerns that arise at home. Response to treatment: the patient's symptoms have resolved after treatment, the patient's blood pressure is in an acceptable range, mental status has returned to baseline, the patient no longer shows bradycardia, the patient is not short of breath, the patient is not tachycardic, the patient's pain is gone, the patient's temperature has normalized. 06/08 03:57 Order name: CBC with Diff; Complete Time: 04:46 mh7 06/08 03:57 Order name: Basic Metabolic Panel; Complete Time: 05:08 mh7 06/08 03:56 Order name: CT Head Brain wo Cont mh7 06/08 03:57 Order name: LFT's; Complete Time: 05:08 7 06/08 03:57 Order name: Protime (+inr); Complete Time: 04:46 mh7 06/08 03:57 Order name: Ptt, Activated; Complete Time: 04:46 mh7 Administered Medications: 04:20 Drug: Reglan 10 mg Route: IVP; Site: right antecubital; lp1 05:44 Follow up: Response: No adverse reaction; Marked relief of symptoms lp1 04:20 Drug: Benadryl 25 mg Route: IVP; Site: right antecubital; lp1 05:44 Follow up: Response: No adverse reaction; Marked relief of symptoms lp1 04:20 Drug: NS 0.9% 1000 ml Route: IV; Rate: 1000 ml; Site: right antecubital; lp1 05:51 Follow up: IV Status: Completed infusion; IV Intake: 1000ml [facility] Disposition: 06/08/20 05:41 Discharged to Home. Impression: Headache, Hypertension-Medication Noncompliance. - Condition is Stable. - Discharge Instructions: Hypertension, [id number], General Headache Without Cause, [id number]. - Prescriptions for Benadryl 25 mg Oral Capsule - take 1 capsule by ORAL route every 6 hours As needed; 12 tablet. - Medication Reconciliation Form, Thank You Letter, Antibiotic Education, Prescription Opioid Use form. - Follow up: Private Physician; When: 1 - 2 days; Reason: Worsening of condition, Recheck today's complaints, Continuance of care, Re-evaluation by your physician. - Problem is an acute exacerbation. - Symptoms have improved. Signatures: Dispatcher [employer] EDMS Tiff Bolanos RN RN lp1 Ana Gonzalez RN RN ph Robles Ring MD MD mh7 Corrections: (The following items were deleted from the chart) 09:17 05:41 06/08/2020 05:41 Discharged to Home. Impression: Headache; ph Hypertension-Medication Noncompliance. Condition is Stable. Forms are Medication Reconciliation Form, Thank You Letter, Antibiotic Education, Prescription Opioid Use. Follow up: Private Physician; When: 1 - 2 days; Reason: Worsening of condition, Recheck today's complaints, Continuance of care, Re-evaluation by your physician. Problem is an acute exacerbation. Symptoms have improved. mh7
[2020-06-08 09:33] VITALS: BP 123/83; TEMP 98; O2SAT 99
--- NOTE | 2020-06-10 07:47 | EKG ---
Test Date: 2020-06-08 Test Time: 03:49:11 Administrative Sales Assistant: VAHID MEASUREMENT RESULTS: Intervals: Rate: 59 TX: 166 QRSD: 88 QT: 386 QTc: 382 [place]: P: 52 TX: 166 QRS: -15 T: 3 INTERPRETIVE STATEMENTS: Sinus bradycardia Minimal voltage criteria for LVH, may be normal variant Nonspecific T wave abnormality Abnormal ECG Compared to ECG 07/28/2016 11:30:23 No significant changes Electronically Signed On 06-10-20 07:43:36 CDT by Alin Gary
--- NOTE | 2020-06-10 10:44 | RAD REPORT ---
EXAM DESCRIPTION: CT - Head Brain Wo Cont - 06/08/2020 6:40 am CLINICAL HISTORY: The patient is 55 years old and is Male; HEADACHE TECHNIQUE: Axial computed tomography images of the head/brain without intravenous contrast. Sagitt al and coronal reformatted images were created and reviewed. This CT exam was performed using one o r more of the following dose reduction techniques: automated exposure control, adjustment of the mA and/or kV according to patient size, and/or use of iterative reconstruction technique. COMPARISON: No relevant prior studies available. FINDINGS: BRAIN: Unremarkable. The riddle-white matter differentiation is preserved . No hemorrhage. No significant white matter disease. No edema. No extra-axial fluid collections. VENTRICLES: Unremarkable. No ventriculomegaly. BONES/JOINTS: No acute fracture. SOFT TISSUES: Unremarkable. SINUSES: Mucoperiosteal thickening of the ethmoid air cells is present. Minimal fluid is noted w ithin the left maxillary sinus. MASTOID AIR CELLS: Unremarkable as visualized. No mastoid effusion. ORBITS: Unremarkable as visualized. IMPRESSION: No acute intracranial findings. Electronically signed by: Sinai Zheng MD 06/08/2020 4:21 AM CDT Due to temporary technical issues with the PACS/Fluency reporting system, reports are being signed by the in house radiologist without review as a courtesy to ensure prompt reporting. The interpreting r adiologist is fully responsible for the content of the report.
== END 2020-06-08 09:17 | disposition home or self-care (01) ==
LOC: ER 03:24
DX: I10 Essential (primary) hypertension (principal); Z91.14 Patient's other noncompliance with medication regimen; Z86.73 Personal history of transient ischemic attack (TIA), and cerebral infarction without residual deficits
CPT/HCPCS: 96361; 93005; 85025; 80048; 36415; 85610; 80076; 85730; 70450; 96375; 96374; 99285; J2765; J1200; J7030

== ENCOUNTER 2020-07-24 19:18 | Emergency (ER) | payer BC ==
--- NOTE | 2020-07-24 19:56 | ER ---
Nurse's Notes [facility] Name: Sheng Dominguez Age: 55 yrs Sex: Male : 1965 Arrival Date: 07/24/2020 Time: 19:18 Bed 2 Private MD: Diagnosis: Other otitis externa, right ear Presentation: 07/24 19:33 Chief complaint: Patient states: R ear pain for 2 days. Tried to put warmed olive oil ll1 in his ear, no relief. No fever. Coronavirus screen: Client denies travel out of the [place] in the last 14 days. At this time, the client does not indicate any symptoms associated with coronavirus-19. Ebola Screen: Patient denies travel to an Ebola-affected area in the 21 days before illness onset. Initial Sepsis Screen: Does the patient meet any 2 criteria? No. Patient's initial sepsis screen is negative. Does the patient have a suspected source of infection? Yes: Other: ear pain. Risk Assessment: Do you want to hurt yourself or someone else? Patient reports no desire to harm self or others. Onset of symptoms was July 23, 2020. 19:33 Method Of Arrival: Ambulatory ll1 19:33 Acuity: SRAVAN 4 ll1 Historical: - Allergies: 19:35 No Known Allergies; ll1 - PMHx: 19:35 Hypertension; CVA; ll1 - PSHx: 19:35 Shoulder sx; ll1 - Immunization history:: Flu vaccine is not up to date. - Social history:: Smoking status: Patient denies any tobacco usage or history of. Screenin:03 Abuse screen: Denies threats or abuse. Denies injuries from another. Nutritional rv screening: No deficits noted. Tuberculosis screening: No symptoms or risk factors identified. Fall Risk None identified. Assessment: 20:02 General: Appears comfortable, Behavior is calm, cooperative. Pain: Complains of pain in rv right ear. Neuro: Level of Consciousness is awake, alert, obeys commands, Oriented to person, place, time, situation. Cardiovascular: Patient's skin is warm and dry. Respiratory: Airway is patent. EENT: Ear canal clear on right ear. Vital Signs: 19:33 BP 160 / 96; Pulse 65; Resp 18; Temp 98.4; Pulse Ox 99% ; Height 6 ft. 1 in. (185.42 ll1 cm); Pain 7/10; ED Course: 19:18 Patient arrived in ED. cl3 19:25 Sara Ortiz FNP-C is [facility]. kb 19:25 Lambert Sanchez MD is Attending Physician. kb 19:34 Triage completed. ll1 19:35 Arm band placed on Patient placed in an exam room, on a stretcher. ll1 20:01 Andrew Villeda, RN is Primary Nurse. rv 20:02 Patient has correct armband on for positive identification. Pulse ox on. NIBP on. rv 20:03 No provider procedures requiring assistance completed. Patient did not have IV access rv during this emergency room visit. Administered Medications: No medications were administered Outcome: 19:55 Discharge ordered by MD. kb 20:03 Discharged to home ambulatory. rv 20:03 Condition: good 20:03 Discharge instructions given to patient, Instructed on discharge instructions, follow up and referral plans. medication usage, Demonstrated understanding of instructions, follow-up care, medications, Prescriptions given X 1. 20:04 Patient left the ED. rv Signatures: Sara Ortiz FNP-C GENERATION TECHNOLOGIST-Ckb Andrew Villeda, RN RN [employer] cl3 Renetta Sandoval, GEORGIE RN ll1
--- NOTE | 2020-07-24 19:56 | EDPHYS ---
Physician Documentation [facility] Name: Sheng Dominguez Age: 55 yrs Sex: Male : 1965 Arrival Date: 07/24/2020 Time: 19:18 Bed 2 Private MD: ED Physician Lambert Sanchez HPI: 07/24 20:41 This 55 yrs old Black Male presents to ER via Ambulatory with complaints of Ear Pain. kb 20:41 The patient presents with pain, moderate. The complaints affect the right ear. The kb patient has not experienced similar symptoms in the past. The patient has not recently seen a physician. 20:41 Onset: The symptoms/episode began/occurred 2 day(s) ago. Modifying factors: The kb symptoms are alleviated by nothing, the symptoms are aggravated by nothing. Associated signs and symptoms: The patient has no apparent associated signs or symptoms. Severity of symptoms: At their worst the symptoms were moderate in the emergency department the symptoms are unchanged. Historical: - Allergies: 19:35 No Known Allergies; ll1 - PMHx: 19:35 Hypertension; CVA; ll1 - PSHx: 19:35 Shoulder sx; ll1 - Immunization history:: Flu vaccine is not up to date. - Social history:: Smoking status: Patient denies any tobacco usage or history of. ROS: 20:40 Constitutional: Negative for fever, chills, and weight loss, Cardiovascular: Negative kb for chest pain, palpitations, and edema, Respiratory: Negative for shortness of breath, cough, wheezing, and pleuritic chest pain, Abdomen/GI: Negative for abdominal pain, nausea, vomiting, diarrhea, and constipation, MS/Extremity: Negative for injury and deformity, Skin: Negative for injury, rash, and discoloration, Neuro: Negative for headache, weakness, numbness, tingling, and seizure. 20:40 ENT: Positive for ear pain. Exam: 20:40 Constitutional: This is a well developed, well nourished patient who is awake, alert, kb and in no acute distress. Head/Face: Normocephalic, atraumatic. Skin: Warm, dry with normal turgor. Normal color with no rashes, no lesions, and no evidence of cellulitis. MS/ Extremity: Pulses equal, no cyanosis. Neurovascular intact. Full, normal range of motion. Neuro: Awake and alert, GCS 15, oriented to person, place, time, and situation. Cranial nerves II-XII grossly intact. Motor strength 5/5 in all extremities. Sensory grossly intact. Cerebellar exam normal. Normal gait. 20:40 ENT: External ear(s): are unremarkable, Ear canal(s): erythema, that is moderate, of the right canal, purulent discharge, that is minimal, in the right canal, swelling, that is moderate, of the right canal, TM's: are normal. 20:40 Respiratory: the patient does not display signs of respiratory distress, Respirations: normal. Vital Signs: 19:33 BP 160 / 96; Pulse 65; Resp 18; Temp 98.4; Pulse Ox 99% ; Height 6 ft. 1 in. (185.42 ll1 cm); Pain 7/10; MDM: 19:37 Patient medically screened. kb 20:39 Data reviewed: vital signs, nurses notes. Data interpreted: Pulse oximetry: on room air kb is 99 %. Interpretation: normal. Counseling: I had a detailed discussion with the patient and/or guardian regarding: the historical points, exam findings, and any diagnostic results supporting the discharge/admit diagnosis, the need for outpatient follow up, an ENT specialist, to return to the emergency department if symptoms worsen or persist or if there are any questions or concerns that arise at home. Administered Medications: No medications were administered Disposition: 07/25 02:02 Co-signature as Attending Physician, Lambert Sanchez MD I agree with the assessment and tw4 plan of care. Disposition: 07/24/20 19:55 Discharged to Home. Impression: Other otitis externa, right ear. - Condition is Stable. - Discharge Instructions: Otitis Externa, [id number], Ear Drops, Adult, [id number]. - Prescriptions for Ciprodex 0.3- 0.1 % Otic Drops, Suspension - instill 4 drop by OTIC route every 12 hours for 7 days , for ears ONLY; 1 Container. - Medication Reconciliation Form, Thank You Letter, Antibiotic Education, Prescription Opioid Use form. - Follow up: Emergency Department; When: As needed; Reason: Worsening of condition. Follow up: Private Physician; When: 2 - 3 days; Reason: Recheck today's complaints, Continuance of care, Re-evaluation by your physician. Signatures: Sara Ortiz, FRANCOIS-C SAFE DEPOSIT CLERK-Lambert Kelly MD MD tw4 Andrew Villeda RN RN rv Renetta Sandoval RN RN ll1 Corrections: (The following items were deleted from the chart) 07/24 20:04 19:55 07/24/2020 19:55 Discharged to Home. Impression: Other otitis externa, right ear. rv Condition is Stable. Forms are Medication Reconciliation Form, Thank You Letter, Antibiotic Education, Prescription Opioid Use. Follow up: Emergency Department; When: As needed; Reason: Worsening of condition. Follow up: Private Physician; When: 2 - 3 days; Reason: Recheck today's complaints, Continuance of care, Re-evaluation by your physician. kb
[2020-07-24 23:24] VITALS: BP 160/96; TEMP 98.4; O2SAT 99
== END 2020-07-24 20:04 | disposition home or self-care (01) ==
LOC: ER 19:18
DX: H60.8X1 Other otitis externa, right ear (principal); I10 Essential (primary) hypertension
CPT/HCPCS: 99283

== ENCOUNTER 2021-10-22 21:07 | Emergency (ER) | payer BC ==
--- OUTSIDE RECORDS SUMMARY | 2021-10-22 21:10 | XMS REPORT | Continuity of Care Document ---
:1965 Author Organization [facility] t Address [address] [place] [address] Care Team Providers Name Role Phone Lab, Fam Pob I Attending Clinician Unavailable Anene PILLAR WORKER Attending Clinician ANENE Attending Clinician Unavailable Doctor Unassigned, Name Attending Clinician Unavailable Payers Payer Name Policy Type Policy Number Effective Date Expiration Date S ource Problems Condition Condition Condition Status Onset Resolution Last Treating Co mments Source Name Details Category Date Date Treatment Clinician Date Stroke Stroke Disease Active Univers 12-11 ity of 00:00: [address] Cerebral Cerebral Disease Active Unive rs infarction infarction 12-11 it y of due to due to 00:00: [place] embolism embolism 00 [facility] [place] cerebral cerebral artery artery 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-11 ity of thrombosis thrombosis 00:00: [address] Allergies, Adverse Reactions, Alerts Allergy Allergy Status Severity Reaction(s) Onset Inactive Treating Comm ents Source Name Type Date Date Clinician NO KNOWN Drug Active Univers ALLERGIE Class ity of S [facility] Social History Social Habit Start Date Stop Date Quantity Comments Source Sex Assigned At Universit y of [facility] Alcohol intake 2014-01-04 2014-01-04 Current drinker Unive rsity of 00:00:00 00:00:00 of alcohol [facility] (finding) [place] Smoking Status Start Date Stop Date Source Never smoker [facility] Medications Ordered Filled Start Stop Current Ordering Indication Dosage Frequency Signature Comments Components Source Medication Medication Date Date Medication? Clinician (SIG) Name Name amLODIPine Yes 10mg Take 1 Tab U nivers (NORVASC) 4-16 by mouth ity of 10 mg 00:00: daily. [place] tablet [address] [place] [address] aspirin 81 Yes 81mg Take 1 Tab U nivers mg chewable 4-16 by mouth ity of tablet 00:00: daily. [address] amLODIPine Yes 10mg Take 1 Tab U nivers (NORVASC) 4-16 by mouth ity of 10 mg 00:00: daily. [facility] 00 [facility] aspirin 81 Yes 81mg Take 1 Tab U nivers mg chewable 4-16 by mouth ity of tablet 00:00: daily. [address] Immunizations Ordered Filled Immunization Date Status Comments Sourc e Immunization Name Name Influenza Virus 2013-12-13 Completed Universit y of Vaccine (3+ yrs) 00:00:00 [facility] Influenza Virus 2013-12-13 Completed Universit y of Vaccine (3+ yrs) 00:00:00 [facility] Procedures This patient has no known procedures. Encounters Start End Encounter Admission Attending Care Care Encounter Source Date/Time Date/Time Type Type Clinicians Facility Department ID 2020-09-03 2020-09-03 Laboratory Lab, Adc Fam Pob I [facility] [id number] Univers 17:41:26 18:01:26 Only Festus Bhatt [id number] ity of [place] [id number] Luciano as Lester [id number] [facility] [address] [place] [address] 2020-09-03 2020-09-03 Outpatient R NE [facility] [id number] Univers 17:40:00 17:40:00 FESTUS ity of [facility] 2020-09-03 2020-09-03 Letter Doctor MARCIO [id number] Univers 00:00:00 00:00:00 (Out) Unassigned, NAMRATA [id number] ity of [place] [facility] [id number] Luciano as [phone] [address] Results This patient has no known results.
[2021-10-22] MEDS ORDERED: IBUPROFEN 400 MG TAB ONE (21:59)
[2021-10-22] MEDS ORDERED: HYDROCODONE/APAP 7.5/325 MG TAB ONE (21:59)
--- NOTE | 2021-10-22 23:14 | EDPHYS ---
Physician Documentation [facility] Name: Sheng Dominguez Age: 56 yrs Sex: Male : 1965 Arrival Date: 10/22/2021 Time: 21:10 Bed 12 Private MD: ED Physician Jerardo Aguirre HPI: 10/22 22:00 This 56 yrs old Black Male presents to ER via Wheelchair with complaints of Knee Injury.cp 22:00 The patient presents with an injury, pain, that is acute. The complaints affect the cp medial aspect of right knee and right knee. Context: The problem was sustained at home, resulted from the patient falling, while walking, the patient can fully bear weight, Patient reports trip and fall at home in garage causing him to land directly onto right knee. 22:00 Onset: The symptoms/episode began/occurred today. cp Historical: - Allergies: 21:35 No Known Allergies; ll3 - Home Meds: 21:35 amlodipine 10 mg oral tab once daily [Active]; ll3 - PMHx: 21:35 Hypertension; CVA; ll3 - PSHx: 21:35 None; ll3 - Immunization history:: Client reports having NOT received the Covid vaccine. - Social history:: Smoking status: Patient denies any tobacco usage or history of. ROS: 22:05 MS/extremity: Positive for pain, swelling, tenderness, of the right knee, Negative for cp decreased range of motion, deformity, paresthesias. 22:05 Constitutional: Negative for body aches, chills, fever. cp 22:05 Cardiovascular: Negative for chest pain, palpitations. 22:05 Respiratory: Negative for cough, shortness of breath, wheezing. 22:05 Abdomen/GI: Negative for abdominal pain, nausea, vomiting, and diarrhea. 22:05 Neuro: Negative for altered mental status, dizziness, headache, loss of consciousness, syncope, weakness. 22:05 All other systems are negative. Exam: 22:10 Constitutional: The patient appears in no acute distress, alert, awake, well developed, cp well nourished, uncomfortable. 22:10 Head/Face: Normocephalic, atraumatic. cp 22:10 Cardiovascular: Rate: normal. 22:10 Respiratory: the patient does not display signs of respiratory distress, Respirations: normal, no use of accessory muscles, no retractions. 22:10 Abdomen/GI: Exam negative for discomfort, distension, guarding, Inspection: abdomen appears normal. 22:10 Back: pain, is absent, ROM is normal. 22:10 Musculoskeletal/extremity: Extremities: grossly normal except: noted in the anterior aspect of right knee: contusion, pain, swelling, lateral joint line tenderness, There is no evidence of decreased ROM, deformity, ROM: limited passive range of motion due to pain, in the right knee, Perfusion: the extremity is normally perfused throughout, the right leg Vital Signs: 21:32 BP 136 / 82; Pulse 64; Resp 15; Temp 99.5(TE); Pulse Ox 99% on R/A; Weight 117.93 kg ll3 (R); Height 6 ft. 1 in. (185.42 cm) (R); Pain 8/10; 21:32 Body Mass Index 34.30 (117.93 kg, 185.42 cm) ll3 MDM: 21:44 Patient medically screened. cp 22:00 Differential diagnosis: dislocation, open fracture, closed fracture, contusion. cp 23:10 Data reviewed: vital signs, nurses notes, radiologic studies, plain films. Test cp interpretation: by ED physician or midlevel provider: xrays of right knee negative for fracture. Counseling: I had a detailed discussion with the patient and/or guardian regarding: the historical points, exam findings, and any diagnostic results supporting the discharge/admit diagnosis, lab results, radiology results, to return to the emergency department if symptoms worsen or persist or if there are any questions or concerns that arise at home. Response to treatment: the patient's symptoms have markedly improved after treatment, and as a result, I will discharge patient. 10/22 21:52 Order name: XRAY Knee RIGHT 3 view cp 10/22 23:10 Order name: Crutches; Complete Time: 23:34 cp 10/22 23:10 Order name: Nato wrap-joint; Complete Time: 23:34 cp Administered Medications: 22:02 Drug: Hydrocodone-Acetaminophen (7.5 mg-325 mg) 1 tabs Route: PO; ld1 22:02 Drug: Ibuprofen 800 mg Route: PO; ld1 Disposition: 23:35 Co-signature as Attending Physician, Jerardo Aguirre MD I agree with the assessment and rn plan of care. Attestation: The patient's history, exam findings, diagnostics, and a summary of any interventions or procedures was reviewed in detail with Felipe MACKEY. Disposition Summary: 10/22/21 23:13 Discharge Ordered Location: Home cp Problem: new cp Symptoms: have improved cp Condition: Stable cp Diagnosis - Contusion of right knee cp Followup: cp - With: Az Fox MD - When: 1 week - Reason: Recheck today's complaints Discharge Instructions: - Discharge Summary Sheet cp - Acute Knee Pain, Adult cp Forms: - Medication Reconciliation Form cp - Thank You Letter cp - Antibiotic Education cp - Prescription Opioid Use cp Prescriptions: - Diclofenac Sodium 75 mg Oral tablet,delayed release (DR/EC) - take 1 tablet by ORAL route 2 times per day; 20 tablet; Refills: 0, Product cp Selection Permitted Signatures: Dispatcher [employer] Jerardo Laws MD MD rn Page, Corey, PA PA cp Dibbern, Lauren RN RN ld1 Betys James RN RN ll3
--- NOTE | 2021-10-22 23:14 | ER ---
Nurse's Notes [facility] Name: Sheng Dominguez Age: 56 yrs Sex: Male : 1965 Arrival Date: 10/22/2021 Time: 21:10 Bed 12 Private MD: Diagnosis: Contusion of right knee Presentation: 10/22 21:32 Chief complaint: Patient states: States "I was in my garage and missed a step and fell ll3 on my right knee" around 1830. Coronavirus screen: At this time, the client does not indicate any symptoms associated with coronavirus-19. Ebola Screen: No symptoms or risks identified at this time. Initial Sepsis Screen: Does the patient meet any 2 criteria? No. Patient's initial sepsis screen is negative. Does the patient have a suspected source of infection? No. Patient's initial sepsis screen is negative. Risk Assessment: Do you want to hurt yourself or someone else? Patient reports no desire to harm self or others. Onset of symptoms was October 22, 2021 at 18:30. 21:32 Method Of Arrival: Wheelchair ll3 21:32 Acuity: SRAVAN 3 ll3 Triage Assessment: 21:32 General: Appears uncomfortable, Behavior is calm, cooperative. Pain: Complains of pain ll3 in right knee. Neuro: Level of Consciousness is awake, alert, obeys commands, Oriented to person, place, time, situation. Cardiovascular: Patient's skin is warm and dry. Respiratory: Respiratory effort is even, unlabored, Respiratory pattern is regular, symmetrical. Derm: Scrapped R knee. Musculoskeletal: Reports States it hurts to bend or put weight on right knee. Injury Description: Missed a step in garage and fell on R knee. Historical: - Allergies: 21:35 No Known Allergies; ll3 - Home Meds: 21:35 amlodipine 10 mg oral tab once daily [Active]; ll3 - PMHx: 21:35 Hypertension; CVA; ll3 - PSHx: 21:35 None; ll3 - Immunization history:: Client reports having NOT received the Covid vaccine. - Social history:: Smoking status: Patient denies any tobacco usage or history of. Screenin:45 Abuse screen: Denies threats or abuse. Denies injuries from another. Nutritional ld1 screening: No deficits noted. Tuberculosis screening: No symptoms or risk factors identified. Fall Risk None identified. Assessment: 21:44 General: Appears in no apparent distress. comfortable, Behavior is calm, cooperative, ld1 appropriate for age. Pain:. 21:45 Pain: Complains of pain in right knee Pain does not radiate. Pain currently is 6 out of ld1 10 on a pain scale. Quality of pain is described as throbbing, Pain began suddenly, Is intermittent. Neuro: Level of Consciousness is awake, alert, obeys commands, Oriented to person, place, time, situation. Cardiovascular: Capillary refill < 3 seconds Patient's skin is warm and dry. Respiratory: Airway is patent Respiratory effort is even, unlabored. GI: Abdomen is round non-distended. : No signs and/or symptoms were reported regarding the genitourinary system. EENT: No signs and/or symptoms were reported regarding the EENT system. Derm: No signs and/or symptoms reported regarding the dermatologic system. Musculoskeletal: No signs and/or symptoms reported regarding the musculoskeletal system. Vital Signs: 21:32 BP 136 / 82; Pulse 64; Resp 15; Temp 99.5(TE); Pulse Ox 99% on R/A; Weight 117.93 kg ll3 (R); Height 6 ft. 1 in. (185.42 cm) (R); Pain 8/10; 21:32 Body Mass Index 34.30 (117.93 kg, 185.42 cm) ll3 ED Course: 21:10 Patient arrived in ED. es 21:32 Arm band placed on right wrist. Patient placed in an exam room. ll3 21:35 Triage completed. ll3 21:37 Lin Issa, GEORGIE is Primary Nurse. ld1 21:42 Felipe Pugh PA is PHCP. cp 21:42 Jerardo Aguirre MD is Attending Physician. cp 21:45 Patient has correct armband on for positive identification. Bed in low position. Call ld1 light in reach. Side rails up X2. Pulse ox on. NIBP on. Door closed. Noise minimized. 21:45 No provider procedures requiring assistance completed. ld1 22:21 XRAY Knee RIGHT 3 view In Process Unspecified. EDMS 23:11 Az Fox MD is Referral Physician. cp 23:34 Patient did not have IV access during this emergency room visit. ld1 Administered Medications: 22:02 Drug: Hydrocodone-Acetaminophen (7.5 mg-325 mg) 1 tabs Route: PO; ld1 22:02 Drug: Ibuprofen 800 mg Route: PO; ld1 Outcome: 23:13 Discharge ordered by . cp 23:34 Discharged to home ambulatory, with crutches. ld1 23:34 Condition: stable 23:34 Discharge instructions given to patient, Instructed on discharge instructions, follow up and referral plans. medication usage, Demonstrated understanding of instructions, follow-up care, medications, Prescriptions given X 1. 23:34 Patient left the ED. ld1 Signatures: Dispatcher [employer] Frances Jackson Corey, PA PA cp Dibbern, Lauren, RN RN ld1 Betsy James RN RN ll3 Corrections: (The following items were deleted from the chart) 21:36 21:32 Pulse 64bpm; Resp 15bpm; Pulse Ox 99% RA; Temp 99.5F Temporal; 117.93 kg ll3 Reported; Height 6 ft. 1 in. Reported; BMI: 34.3; Pain 8/10; ll3 21:39 21:32 Chief complaint: Patient states: States "I was in my garage and missed a step and ll3 fell on my right knee" around 1830 ll3
[2021-10-23 00:38] VITALS: BP 136/82; TEMP 99.5; O2SAT 99
--- NOTE | 2021-10-23 07:48 | RAD REPORT ---
EXAM DESCRIPTION: RAD - Knee Right 3 View - 10/22/2021 10:19 pm CLINICAL HISTORY: PAIN, no trauma history detailed COMPARISON: No comparison FINDINGS: No fracture, dislocation or periosteal reaction.No measurable joint effusion seen. Slight narrowing of the medial compartment seen. Small medial compartment marginal spurs are present. There is minimal spurring along the tibial spine and intercondylar notch. Moderate-size spurs are seen jase g the articular margins of the patella with spurring at the quadriceps insertion and patella tendon o rigin. Additional degenerative or posttraumatic calcifications are present in the proximal patella te ndon with slight thickening of the tendon. No foreign body or other soft tissue abnormality. IMPRESSION: Knee joint degenerative changes are present as detailed. No acute bone or joint finding. Clinical concerns for internal derangement or occult bony injury could be further assessed with MR im aging.
== END 2021-10-22 23:34 | disposition home or self-care (01) ==
LOC: ER 21:07
DX: S80.01XA Contusion of right knee, initial encounter (principal); W01.0XXA Fall on same level from slipping, tripping and stumbling without subsequent striking against object, initial encounter; I10 Essential (primary) hypertension
CPT/HCPCS: 99284

== ENCOUNTER 2023-04-20 04:33 | Emergency (ER) | payer BC ==
--- OUTSIDE RECORDS SUMMARY | 2023-04-20 04:36 | XMS REPORT | Continuity of Care Document ---
:1965 Author Organization [facility] t Address 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 Primary Care Physician Unavailable RAYMON JARA Attending Clinician Unavailable Raymon Jara MD Attending Clinician Lab, Adc Fam Pob I Attending Clinician Unavailable Festus Cee Attending Clinician FESTUS OLIVIA Attending Clinician Unavailable Doctor Unassigned, [place] Attending Clinician Unavailable RAYMON JARA Admitting Clinician Unavailable Payers Payer Name Policy Type Policy Number Effective Date Expiration Date S [facility] - [id number] 2020 00:00:00 OUT OF STATE Problems Condition Condition Condition Status Onset Resolution Last Treating Co mments Source Name Details Category Date Date Treatment Clinician Date Stroke Stroke Disease Active Univers 4-14 ity of 00:00: [place] 00 Medical Branch Cerebral Cerebral Disease Active Unive rs infarction infarction -14 it y of due to due to 00:00: [place] embolism embolism 00 Medica l of middle of middle Bran ch cerebral cerebral artery artery Carotid Carotid Disease Active Univers artery artery 4-14 [place] [address] [place] [address] Branch Allergies, Adverse Reactions, Alerts Allergy Allergy Status Severity Reaction(s) Onset Inactive Treating Comm ents Source Name Type Date Date Clinician NO KNOWN Drug Active Univers ALLERGIE Class ity of S [facility] [place] [facility] Social History Social Habit Start Date Stop Date Quantity Comments Source Exposure to 2022-10-25 2022-11-04 Not sure [facility] SARS-CoV-2 (event) 00:00:00 22:23:00 Medica l Branch Alcohol intake 2014-01-04 2014-01-04 .48 /d [facility] 00:00:00 00:00:00 [facility] Branch Sex Ass[birth year] At [birth year] [facility] 00:00:00 00:00:00 Medical Branch Smoking Status Start Date Stop Date Source Never smoked tobacco [facility] Medications Ordered Filled Start Stop Current Ordering Indication Dosage Frequency Signature Comments Components Source Medication Medication Date Date Medication? Clinician (SIG) Name Name ketorolac No 30mg 30 mg, Unive rs (TORADOL) 11-05 Intramuscu ity of injection 05:30: 04:47 lar, ONCE, [place] 30 mg 00 :00 1 dose, On Medical 11/04/22 Branch at 2330, Routine HYDROcodone 2021-08- No 1{tbl} 1 tablet, Univers -acetaminop 09-04 Oral, ONCE i ty of hen (NORCO) 08:15: 06:12 NOW, 1 [place] as 10-325 mg 00 :00 dose, On Medica l tablet 1 [place] Branch tablet 07/05/22 at 0215, Routine iopamidol 2021-08 No [id number] 100mL 100 mL, Univers (ISOVUE 09-04 Intravenou ity o f 370-500 mL) 05:25: 05:24 s, ONCE, 1 [place] injection 00 :00 dose, On Medica l 100 mL [facility] 07/05/22 at 0045, Routine acetaminoph 2021-08- No [id number] 1{tbl} Take 1 U nivers en-codeine 09-04 tablet by ity of 300-30 mg 00:00: 05:59 mouth [place] tablet 00 :00 every 6 Medical (six) Branch hours as needed for Pain (scale 4-6) for up to 20 days. Indication s: acute pain methocarbam 2021-08- No [id number] 750mg Take 1 Univers oL 09-04 tablet by ity of (ROBAXIN-75 00:00: 05:59 mouth 4 [place] 0) 750 mg 00 :00 (four) Medical tablet [facility] Branch daily for 20 days. amLODIPine Yes 10mg Take 1 Tab U nivers (NORVASC) 4-16 by mouth ity of 10 mg 00:00: daily. [place] tablet [facility] aspirin 81 Yes 81mg Take 1 Tab U nivers mg chewable 4-16 by mouth ity of tablet 00:00: daily. [place] [facility] amLODIPine Yes 10mg Take 1 Tab U nivers (NORVASC) 4-16 by mouth ity of 10 mg 00:00: daily. [place] tablet [facility] aspirin 81 Yes 81mg Take 1 Tab U nivers mg chewable 4-16 by mouth ity of tablet 00:00: daily. [place] [facility] amLODIPine Yes 10mg Take 1 Tab U nivers (NORVASC) 4-16 by mouth ity of 10 mg 00:00: daily. [place] tablet [facility] amLODIPine Yes 10mg Take 1 Tab U nivers (NORVASC) 4-16 by mouth ity of 10 mg 00:00: daily. [place] tablet [facility] aspirin 81 Yes 81mg Take 1 Tab U nivers mg chewable 4-16 by mouth ity of tablet 00:00: daily. [place] [facility] aspirin 81 Yes 81mg Take 1 Tab U nivers mg chewable 4-16 by mouth ity of tablet 00:00: daily. [address] Immunizations Ordered Filled Immunization Date Status Comments [facility] e Immunization Name Name Influenza Virus 2013-12-13 Completed Universit y of Vaccine (3+ yrs) 00:00:00 [facility] Influenza Virus 2013-12-13 Completed Universit y of Vaccine (3+ yrs) 00:00:00 [facility] Influenza Virus 2013-12-13 Completed Universit y of Vaccine (3+ yrs) 00:00:00 [facility] Influenza Virus 2013-12-13 Completed Universit y of Vaccine (3+ yrs) 00:00:00 [facility] Vital Signs Vital Name Observation Time Observation Value Comments Source Systolic blood 2022-11-05 04:24:00 136 mm[Hg] Univer sity of pressure [facility] [place] [facility] Diastolic blood 2022-11-05 04:24:00 89 mm[Hg] Unive rsity of pressure [place] [facility] Heart rate 2022-11-05 04:24:00 70 /min Universi ty of [place] [facility] Body temperature 2022-11-05 04:24:00 36.83 Madeline Univ ersity of [place] [facility] Respiratory rate 2022-11-05 04:24:00 16 /min Univ ersity of [place] [facility] Oxygen saturation in 2022-11-05 04:24:00 99 /min University of Arterial blood by [facility] Pulse oximetry Branch Body height 2022-11-05 04:23:00 185.4 cm Universi ty of [place] [facility] Body weight 2022-11-05 04:23:00 113.399 kg Universi ty [facility] [place] [facility] BMI 2022-11-05 04:23:00 32.98 kg/m2 Universi ty [facility] [place] [facility] Systolic blood 2022-07-05 05:45:00 141 mm[Hg] Univer sity of pressure [place] [facility] Diastolic blood 2022-07-05 05:45:00 99 mm[Hg] Unive rsity of pressure [place] [facility] Heart rate 2022-07-05 05:45:00 51 /min Universi ty [facility] [place] [facility] Body temperature 2022-07-05 05:45:00 36.67 Madeline Univ ersity of [place] [facility] Respiratory rate 2022-07-05 05:45:00 16 /min Univ ersity of [place] [facility] Oxygen saturation in 2022-07-05 05:45:00 95 /min University of Arterial blood by [facility] Pulse oximetry Branch Body height 2022-07-05 04:21:00 185.4 cm Universi ty [facility] [place] [facility] Body weight 2022-07-05 04:21:00 114.533 kg [facility] [place] [facility] BMI 2022-07-05 04:21:00 33.31 kg/m2 [facility] [place] [facility] Procedures Procedure Date / Time Performing Clinician Source Performed ABORH CONFIRMATION (LAB 2022-07-05 06:42:00 Raymon Jara [facility] ONLY) Medical Branch HB ABO GROUPING 2022-07-05 06:11:00 Raymon Jara [place] o f [facility] [place] [facility] CT TRAUMA THORAX W 2022-07-05 05:37:00 Raymon Jara [facility] CONTRAST Medical Branch CT TRAUMA THORACIC 2022-07-05 05:37:00 EstefaniRaymon camacho [facility] SPINE WO CONTRAST Medical [place] CT TRAUMA ABDOMEN 2022-07-05 05:37:00 EstefaniRaymon camacho [facility] PELVIS W CONTRAST [facility] CT TRAUMA LUMBAR SPINE 2022-07-05 05:37:00 EstefaniRaymon camacho [facility] CONTRAST Medical Branch CT TRAUMA HEAD WO 2022-07-05 05:33:00 EstefaniRaymon camacho [facility] CONTRAST [facility] CT TRAUMA CERVICAL 2022-07-05 05:33:00 EstefaniRaymon camacho [facility] SPINE WO CONTRAST Medical Branch LIPASE 2022-07-05 04:47:00 EstefaniRaymon camacho [facility] HEPATIC FUNCTION PANEL 2022-07-05 04:47:00 EstefaniRaymon camacho [facility] ([id number]) (ALB,T.PRO,BILI Medical Branch T,BU/BC,ALT,AST,ALK PHOS) BASIC METABOLIC PANEL 2022-07-05 04:47:00 EstefaniRaymon camacho [facility] (NA, K, CL, CO2, Medical Branch GLUCOSE, BUN, CREATININE, CA) CBC WITHOUT DIFF 2022-07-05 04:47:00 Raymon Jara [facility] PROTHROMBIN TIME / INR 2022-07-05 04:47:00 Raymon Jara [facility] ACTIVATED PARTIAL 2022-07-05 04:47:00 Raymon Jara [facility] THRMPLAS [facility] CONSENT/REFUSAL FOR 2022-07-05 04:16:28 Doctor Unassigned, No Un [facility] DIAGNOSIS AND TREATMENT Name Medical Branch Encounters Start End Encounter Admission Attending Care Care Encounter Source Date/Time Date/Time Type Type Clinicians Facility Department ID 2022-11-04 2022-11-04 Emergency X [facility] ERT [id number] Univers 22:24:00 23:24:00 RAYMON floyd [facility] 2022-11-04 2022-11-04 Emergency Estefani, [facility] [id number] Univers 22:24:00 23:24:00 Raymon [facility] [id number] [facility] [id number] [facility] [id number] [address] ([facility]) 2022-07-04 2022-07-05 Emergency X ESTEFANI [facility] ERT [id number] Univers 23:25:00 01:15:00 RAYMON ity [facility] 2022-07-04 2022-07-05 Emergency Estefani, [facility] [id number] Univers 23:25:00 01:15:00 Raymon Mcgrath [facility] [id number] ity of [facility] [id number] [facility] [id number] [address] ([facility]) 2020-09-03 2020-09-03 Laboratory Lab, Adc Fam Pob I [facility] [id number] Univers 17:41:26 18:01:26 Only Festus Olivia [id number] ity of [place] [id number] [place] as Professio [id number] [address] Office [address] 2020-09-03 2020-09-03 Outpatient R NE [facility] [id number] Univers 17:40:00 17:40:00 FESTUS itfloyd [facility] 2020-09-03 2020-09-03 Letter Doctor MARCIO [id number] Univers 00:00:00 00:00:00 (Out) Unassigned, NAMRATA [id number] ity of [place] [facility] [id number] [place] as [id number] [address] Results Test Description Test Time Test Comments Results Result Comments Source Type and Screen - The Type and Screen expires at [facility] on 2022-07-05 06:49:01 the 3rd day after it was drawn. ONCE STAT Test Item Value Reference Range Interpretation Comme nts ABO & RH (test code = 20) B Positive Pe rformed at [facility] Laboratory Services - [facility] Blood [id number] [place] [address]Ysml Free: [phone] No. [id number] IAT (test code = 1185) Negative Perfo rmed at [facility] Laboratory Services - [facility] Blood [address] [place], [place] [address]Xnpb Free: [phone] No. [id number] [facility] Conf[facility] (Lab Only)2022-07-05 06:07:16 Test Item Value Reference Range Interpretation Comments ABO & RH (test code B Positive Performe d at [facility] = 20) Laboratory Serv ices - [facility] Blood Bank[address] [place], [place] [address]Klwx Free: [phone] A No. [id number] [facility]
--- NOTE | 2023-04-20 05:27 | EDPHYS ---
Physician Documentation [facility] Name: Sheng Dominguez Age: 57 yrs Sex: Male : 1965 Arrival Date: 04/20/2023 Time: 04:33 Bed 12 Private MD: ED Physician Stephie Sheets HPI: 04/20 05:23 This 57 yrs old Black Male presents to ER via Ambulatory with complaints of Wrist Pain. sp3 05:23 57-year-old male with history of hypertension noncompliant, since prior CVA now sp3 presents with left-sided lateral wrist pain for 2 days. 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 He is right-handed. He denies any direct trauma, numbness or tingling and just states he has pain and swelling. No other symptoms proximally in the elbow or shoulder joint. Systemically there are no complaints and symptoms and ROS is otherwise negative.. Historical: - Allergies: 04:56 No Known Allergies; kl - Home Meds: 04:56 amlodipine 10 mg tab once daily [Active]; kl - PMHx: 04:56 CVA; Hypertension; kl - Immunization history:: Adult Immunizations up to date. - Social history:: Smoking status: Reported history of juuling and/or vaping. ROS: 05:24 Constitutional: Negative for fever, chills, and weight loss, Eyes: Negative for injury, sp3 pain, redness, and discharge, Neck: Negative for injury, pain, and swelling, Cardiovascular: Negative for chest pain, palpitations, and edema, Respiratory: Negative for shortness of breath, cough, wheezing, and pleuritic chest pain, Abdomen/GI: Negative for abdominal pain, nausea, vomiting, diarrhea, and constipation, Back: Negative for injury and pain, Skin: Negative for injury, rash, and discoloration, Neuro: Negative for headache, weakness, numbness, tingling, and seizure, Psych: Negative for depression, anxiety, suicide ideation, homicidal ideation, and hallucinations, Allergy/Immunology: Negative for hives, rash, and allergies, Endocrine: Negative for neck swelling, polydipsia, polyuria, polyphagia, and marked weight changes. 05:24 All other systems are negative. Exam: 05:24 Constitutional: This is a well developed, well nourished patient who is awake, alert, sp3 and in no acute distress. Head/Face: Normocephalic, atraumatic. Neck: Trachea midline, no thyromegaly or masses palpated, and no cervical lymphadenopathy. Supple, full range of motion without nuchal rigidity, or vertebral point tenderness. No Meningismus. Skin: Warm, dry with normal turgor. Normal color with no rashes, no lesions, and no evidence of cellulitis. Neuro: Awake and alert, GCS 15, oriented to person, place, time, and situation. Cranial nerves II-XII grossly intact. Motor strength 5/5 in all extremities. Sensory grossly intact. Cerebellar exam normal. Normal gait. Psych: Awake, alert, with orientation to person, place and time. Behavior, mood, and affect are within normal limits. 05:24 Musculoskeletal/extremity: There is swelling in the base of the thumb proximally into the wrist along the snuffbox area. There is no distinct pain in the snuffbox on bony pressure. Neurovascularly the wrist and hand are normal. Other than the swelling there is no other abnormality. Patient does have full range of motion though it is somewhat painful. Proximal joint exams are normal.. Vital Signs: 04:53 BP 171 / 116; Pulse 82; Resp 19; Temp 99.8(O); Pulse Ox 97% on R/A; Weight 113.4 kg; kl Height 6 ft. 1 in. ; Pain 8/10; 05:25 BP 156 / 102; kl 04:53 Body Mass Index 32.98 (113.40 kg, 185.42 cm) kl 04:53 Pain Scale: Adult kl MDM: 04:59 Patient medically screened. sp3 05:25 Data reviewed: vital signs, nurses notes, radiologic studies. ED course: 57-year-old sp3 male with left-sided wrist and hand pain. X-ray of the wrist demonstrates no dislocation, fracture or other abnormality. I do not believe patient has hand bone fracture. Patient was likely has tendinitis and we will treat with NSAID and resplint and follow-up with PCP as needed. Blood pressure will be rechecked and patient states he will take his Norvasc when he gets home. I believe this is transient and no acute intervention is indicated at this time. Patient has no headache, chest pain or other hypertension related symptoms.. 04/20 04:55 Order name: Wrist Left (2 View) XRAY sp3 Administered Medications: No medications were administered Disposition Summary: 04/20/23 05:27 Discharge Ordered Location: Home sp3 Condition: Stable sp3 Diagnosis - Left thumb tendinitis sp3 Followup: sp3 - With: Private Physician - When: Upon discharge from the Emergency Department - Reason: Continuance of care Discharge Instructions: - Discharge Summary Sheet sp3 - Tendinitis sp3 Forms: - Work release form kl - Medication Reconciliation Form sp3 - Thank You Letter sp3 - Antibiotic Education sp3 - Prescription Opioid Use sp3 - Patient Portal Instructions sp3 - Leadership Thank You Letter sp3 Prescriptions: - Diclofenac Sodium 75 mg Oral Tablet Sustained Release - take 1 tablet by ORAL route 2 times per day; 30 tablet; Refills: 0, Product sp3 Selection Permitted Signatures: Dispatcher [employer] Patricia Dominguez, Stephie Perera RN, MD MD sp3
--- NOTE | 2023-04-20 05:27 | ER ---
Nurse's Notes [facility] Name: Sheng Dominguez Age: 57 yrs Sex: Male : 1965 Arrival Date: 04/20/2023 Time: 04:33 Bed 12 Private MD: Diagnosis: Left thumb tendinitis Presentation: 04/20 04:53 Chief complaint: Patient states: left wrist pain woke up this am denies injury. Coronavirus screen: Vaccine status: Patient reports being unvaccinated. Ebola Screen: Patient negative for fever greater than or equal to 101.5 degrees Fahrenheit, and additional compatible Ebola Virus Disease symptoms. 04:53 Method Of Arrival: Ambulatory 05:41 Initial Sepsis Screen: Does the patient meet any 2 criteria? No. Patient's initial sepsis screen is negative. Does the patient have a suspected source of infection? No. Patient's initial sepsis screen is negative. Risk Assessment: Do you want to hurt yourself or someone else? Patient reports no desire to harm self or others. Onset of symptoms was April 20, 2023. 05:41 Acuity: SRAVAN 4 Triage Assessment: 04:56 General: Appears uncomfortable, Behavior is cooperative. Pain: Complains of pain in kl left wrist Pain currently is 8 out of 10 on a pain scale. Musculoskeletal: Circulation, motion, and sensation intact. Capillary refill < 3 seconds, Swelling present in left wrist. Historical: - Allergies: 04:56 No Known Allergies; kl - Home Meds: 04:56 amlodipine 10 mg tab once daily [Active]; kl - PMHx: 04:56 CVA; Hypertension; - Immunization history:: Adult Immunizations up to date. - Social history:: Smoking status: Reported history of juuling and/or vaping. Screenin:40 [facility] ED Fall Risk Assessment (Adult) History of falling in the last 3 months, including since admission No falls in past 3 months (0 pts) Confusion or Disorientation No (0 pts) Intoxicated or Sedated No (0 pts) Impaired Gait No (0 pts) Mobility Assist Device Used No (0 pt) Altered Elimination No (0 pt) Score/Fall Risk Level 0 - 2 = Low Risk Oriented to surroundings, Maintained a safe environment. Abuse screen: Denies threats or abuse. Nutritional screening: No deficits noted. Tuberculosis screening: No symptoms or risk factors identified. Assessment: 05:40 Reassessment: Patient appears in no apparent distress at this time. Vital Signs: 04:53 BP 171 / 116; Pulse 82; Resp 19; Temp 99.8(O); Pulse Ox 97% on R/A; Weight 113.4 kg; kl Height 6 ft. 1 in. ; Pain 8/10; 05:25 BP 156 / 102; kl 04:53 Body Mass Index 32.98 (113.40 kg, 185.42 cm) kl 04:53 Pain Scale: Adult ED Course: 04:36 Patient arrived in ED. mr 04:54 Stephie Sheets MD is Attending Physician. sp3 05:19 Wrist Left (2 View) XRAY In Process Unspecified. EDMS 05:40 Patient has correct armband on for positive identification. kl 05:40 Velcro wrist splint applied to left wrist. kl 05:41 Triage completed. kl 05:41 No provider procedures requiring assistance completed. Patient did not have IV access kl during this emergency room visit. Administered Medications: No medications were administered Medication: 05:41 VIS not applicable for this client. Outcome: 05:27 Discharge ordered by . sp3 05:40 Discharged to home ambulatory. kl 05:40 Condition: stable 05:40 Discharge instructions given to patient, Instructed on discharge instructions, follow up and referral plans. medication usage, Demonstrated understanding of instructions, follow-up care, medications, Prescriptions given X 1. 05:41 Patient left the ED. Signatures: Dispatcher [employer] EDAR Patricia Sandoval RN RN kl Rivera, Mary mr Stephie Sheets MD MD sp3
[2023-04-20 05:46] VITALS: TEMP 99.8; O2SAT 97
[2023-04-20 05:47] VITALS: BP 156/102
--- NOTE | 2023-04-20 14:05 | RAD REPORT ---
EXAM DESCRIPTION: RAD - Wrist Left 2 View - 04/20/2023 5:17 am CLINICAL HISTORY: PAIN COMPARISON: None. FINDINGS: 2 views of the left wrist. Widening of the scapholunate interval with likely degenerative osteophyte/ossicles. Radiocarpal joint space narrowing. Normal osseous mineralization. IMPRESSION: 1. No acute fracture. 2. Widening of the scapholunate interval with likely degenerative change of the radiocarpal joint. Electronically signed by: Robin Jackson 04/20/2023 5:39 AM CDT Due to temporary technical issues with the PACS/Fluency reporting system, reports are being signed by the in house radiologists without review as a courtesy to insure prompt reporting. The interpreting radiologist is fully responsible for the content of the report.
== END 2023-04-20 05:41 | disposition home or self-care (01) ==
LOC: ER 04:33
DX: M65.842 Other synovitis and tenosynovitis, left hand (principal); I10 Essential (primary) hypertension
CPT/HCPCS: 99283

== ENCOUNTER 2023-07-03 15:19 | Emergency (ER) | payer BC ==
--- OUTSIDE RECORDS SUMMARY | 2023-07-03 15:22 | XMS REPORT | Continuity of Care Document ---
:1965 Author Organization [facility] t Address [address] [place] [address] Care Team Providers Name Role Phone Unknown, Inspector And Sorter Primary Care Physician Unavailable RAYMON JARA Attending Clinician Unavailable Raymon Jara MD Attending Clinician Lab, Adc Fam Pob I Attending Clinician Unavailable Festus Cee Attending Clinician FESTUS OLIVIA Attending Clinician Unavailable Doctor Unassigned, [place] Attending Clinician Unavailable RAYMON JARA Admitting Clinician Unavailable Payers Payer Name Policy Type Policy Number Effective Date Expiration Date S [facility] - [id number] 2020 00:00:00 OUT OF STATE Problems Condition [...] Carotid Carotid Disease Active Univers artery artery 14 [place] [address] [place] [address] Branch Allergies, Adverse Reactions, Alerts Allergy Allergy Status Severity Reaction(s) Onset Inactive Treating Comm ents Source Name Type Date Date Clinician NO KNOWN Drug Active Univers ALLERGIE Class ity of S [facility] Social History Social Habit Start Date Stop Date Quantity Comments Source Exposure to 2022-10-25 2022-11-04 Not sure [facility] SARS-CoV-2 (event) 00:00:00 22:23:00 Medica l Branch Alcohol intake 2014-01-04 2014-01-04 .48 /d [facility] 00:00:00 00:00:00 [facility] Branch Sex Assigned At [birth year] [facility] 00:[facility]:00 00:00:00 Medical Branch Smoking Status Start Date Stop Date Source Never smoked tobacco [facility] [place] [place] Medications Ordered Filled Start Stop Current Ordering [...] :00 dose, On Medica l tablet 1 [place] Branch tablet 07/05/22 at 0215, Routine iopamidol 2021-08 No [id number] 100mL 100 mL, Univers (ISOVUE 09-04 Intravenou ity o f 370-500 mL) 05:25: 05:24 s, ONCE, 1 [place] injection 00 :00 dose, On Medica l 100 mL [facility] 07/05/22 at 0045, Routine acetaminoph 2021-08- No [id number] 1{tbl} Take 1 U nivers en-codeine 09-04 tablet by ity of 300-30 mg 00:00: 05:59 mouth [place] tablet 00 :00 every 6 Medical (six) Branch hours as needed for Pain (scale 4-6) for up to 20 days. Indication s: acute pain methocarbam 2021-08- No [id number] 750mg Take 1 Univers oL 09-04 tablet by ity of (ROBAXIN-75 00:00[place] 05:59 [place] 750 mg 00 :00 (four) Medical tablet times Branch daily for 20 days. amLODIPine Yes 10mg Take 1 Tab U nivers (NORVASC) 4-16 by mouth ity of 10 mg 00:00: daily. [place] tablet [facility] aspirin 81 Yes 81mg Take 1 Tab U nivers mg chewable 4-16 by mouth ity of tablet 00:00: daily. [place] [facility] amLODIPine Yes 10mg Take 1 Tab U nivers (NORVASC) 4-16 by mouth ity of 10 mg 00:00: daily. [place] tablet [facility] aspirin 81 Yes 81mg Take 1 Tab U nivers mg chewable 4-16 by mouth ity of tablet 00:00: daily. [place] [facility] amLODIPine Yes 10mg Take 1 Tab U nivers (NORVASC) 4-16 by mouth ity of 10 mg 00:00: daily. [place] tablet [facility] amLODIPine Yes 10mg Take 1 Tab U nivers (NORVASC) 4-16 by mouth ity of 10 mg 00:00: daily. [place] tablet [facility] aspirin 81 Yes 81mg Take 1 Tab U nivers mg chewable 4-16 by mouth ity of tablet 00:00: daily. [place] [facility] aspirin 81 Yes 81mg Take 1 Tab U nivers mg chewable 4-16 by mouth ity of tablet 00:00: daily. [address] Vital Signs Vital Name Observation Time Observation Value Comments Source Systolic blood 2022-11-05 04:24:00 136 mm[Hg] Univer sity of pressure [facility] Diastolic blood 2022-11-05 04:24:00 89 mm[Hg] Unive rsity of pressure [facility] Heart rate 2022-11-05 04:24:00 70 /min [facility] [place] [facility] [place] [facility] [facility] Body temperature 2022-11-05 04:24:[address] [facility] Respiratory rate 2022-11-05 04:24:00 16 /min [facility] Oxygen saturation in 2022-11-05 04:24:00 99 /min [facility] Arterial blood by [facility] Pulse oximetry Branch Body height 2022-11-05 04:23:00 185.4 cm [facility] [place] [facility] Body weight 2022-11-05 04:23:00 113.399 kg [facility] [place] [facility] BMI 2022-11-05 04:23:00 32.98 kg/m2 Universi ty [facility] Systolic blood 2022-07-05 05:45:00 141 mm[Hg] Univer sity of pressure [facility] Diastolic blood 2022-07-05 05:45:00 99 mm[Hg] [facility] Heart rate 2022-07-05 05:45:00 51 /min [facility] [place] [facility] [place] [facility] Body temperature 2022-07-05 05:45:00 36.67 Madeline [facility] Respiratory rate 2022-07-05 05:45:00 16 /min [facility] Oxygen saturation in 2022-07-05 05:45:00 95 /min [facility] Arterial blood by [facility] Pulse oximetry Cre[place] Body height 2022-07-05 04:21:00 185.4 cm Universi ty [facility] Medical Creole Body weight 2022-07-05 04:21:00 114.533 kg Universi ty [facility] BMI 2022-07-05 04:21:00 33.31 kg/m2 [facility] Procedures Procedure Date / Time Performing Clinician Source Performed ABORH CONFIRMATION (LAB 2022-07-05 06:42:00 Raymon Jara [facility] ONLY) Medical Branch HB ABO GROUPING 2022-07-05 06:11:00 Raymon Jara [place] o f [facility] CT TRAUMA THORAX W 2022-07-05 05:37:00 Raymon Jara [facility] CONTRAST Medical Branch CT TRAUMA THORACIC 2022-07-05 05:37:00 Raymon Jara [facility] SPINE WO CONTRAST Medical Branch CT TRAUMA ABDOMEN 2022-07-05 05:37:00 Raymon Jara [facility] PELVIS W CONTRAST Medical Branch CT TRAUMA LUMBAR SPINE 2022-07-05 05:37:[address] [facility] CONTRAST Medical Branch CT TRAUMA HEAD WO 2022-07-05 05:33:00 Raymon Jara [facility] CONTRAST Medical Branch CT TRAUMA CERVICAL 2022-07-05 05:33:00 Ray[facility]ara [facility] SPINE WO CONTRAST Medical Branch LIPASE 2022-07-05 04:47:00 Raymon Jara [place] [facility] HEPATIC FUNCTION PANEL 2022-07-05 04:47:00 Raymon Jara [facility] ([id number]) (ALB,T.PRO,BILI [facility] T,BU/BC,ALT,AST,ALK PHOS) BASIC METABOLIC PANEL 2022-07-05 04:47:00 Raymon Jara [facility] (NA, K, CL, CO2, [facility] GLUCOSE, BUN, CREATININE, CA) CBC WITHOUT DIFF 2022-07-05 04:47:[address] [facility] [place] PROTHROMBIN TIME / INR 2022-07-05 04:47:00 Raymon Jara [facility] ACTIVATED PARTIAL 2022-07-05 04:47:00 Raymon Jara [facility] THRMPLAS [facility] CONSENT/REFUSAL FOR 2022-07-05 04:16:28 Doctor Unassigned, No Un [facility] DIAGNOSIS AND TREATMENT Name [facility] Encounters Start End Encounter Admission Attending Care Care Encounter Source Date/Time Date/Time Type Type Clinicians Facility Department ID 2022-11-04 2022-11-04 Emergency [facility] ERT [id number] Univers 22:24:00 23:24:00 [facility] 2022-11-04 2022-11-04 Emergency [facility] [id number] Univers 22:24:00 23:24:00 [facility] SyMynd [id number] itElectrochaea [id number] [facility] [phone] [address] ([facility]) 2022-07-04 2022-07-05 Emergency X [facility] ERT [id number] Univers 23:25:00 01:15:00 RAYMON [facility] 2022-07-04 2022-07-05 Emergency [facility] [id number] Univers 23:25:00 01:15:00 [facility] [id number] ity of [facility] [id number] [place] [facility] [phone] [address] ([facility]) 2020-09-03 2020-09-03 Laboratory Lab, Adc Fam Pob I [facility] [id number] Univers 17:41:26 18:01:26 Only Festus Olivia [facility] [id number] ity of [place] [id number] Luc[place] as Professio [phone] [address] Office Building One 2020-09-03 2020-09-03 Outpatient R NE, [facility] [id number] Univers 17:40:00 17:40:00 FESTUS ity [facility] 2020-09-03 2020-09-03 Letter Doctor MARCIO [id number] Univers 00:00:00 00:00:00 (Out) Unassigned, NAMRATA [id number] ity of [place] [facility] [id number] [place] as [phone] [address] Results Test Description Test Time Test Comments Results Result Comments Source Type and Screen - The Type and Screen expires at [facility] on 2022-07-05 06:49:01 the 3rd day after it was drawn. ONCE STAT Test Item Value Reference Range Interpretation Comme nts ABO & RH (test code = 20) B Positive Pe rformed at [facility] Laboratory Services - [facility] Blood [address] [place], [place] [address]Dusy Free: [phone] No. [id number] IAT (test code = 1185) Negative Perfo rmed at [facility] Laboratory Services - [facility] Blood [id number] [place], [place] [address]Qwdw Free: [phone] No. [id number] [facility] [place] Confirmation (Lab Only)2022-07-05 06:07:16 Test Item Value Reference Range Interpretation Comments ABO & RH (test code B Positive Performe d at [facility] = 20) Laboratory Serv ices - [facility] Blood [address] [place], [place] [address]Feiz Free: [phone] A No. [id number] [facility] [place]
--- NOTE | 2023-07-03 16:37 | RAD REPORT ---
EXAM DESCRIPTION: US - Extremity Venous Uni Ltd - 07/03/2023 4:31 pm CLINICAL HISTORY: Pain;Swelling COMPARISON: Extremity Venous Uni Ltd dated 02/16/2020 FINDINGS: Color Doppler, grayscale, and spectral analysis was performed. Filling defect within the popliteal vein which was incompletely compressible consistent with the pres ence of thrombus. The posterior tibial vein is also occluded with thrombus. The remaining vessels are compressible and are patent. IMPRESSION: Positive for deep venous thrombosis in the right popliteal vein and posterior tibial vei n. Preliminary findings conveyed to the ED by the rn cardiology at time of exam.
--- NOTE | 2023-07-03 16:40 | RAD REPORT ---
EXAM DESCRIPTION: RAD - Chest Single View - 07/03/2023 4:34 pm CLINICAL HISTORY: leg swelling COMPARISON: Chest Single View dated 07/28/2016 FINDINGS: Lines: None. Lungs: No evidence of edema or pneumonia. Pleural: No significant pleural effusions or pneumothorax. Cardiac: The heart size is within normal limits. Mediastinum: Within normal limits. Bones: No acute fractures. Right clavicle fixation hardware. Other: None IMPRESSION: No acute cardiopulmonary disease.
[2023-07-03 16:59] LABS: Hematocrit 36.3 % (39.6-49.0); Lymphocytes % 27.3 % (15.3-44.8); MPV 8.8 fL (7.6-11.3); Platelets 196 thou/uL (152-406); RBC Red Blood Cell Count 4.12 M/uL (4.33-5.43)
[2023-07-03 17:00] LABS: Absolute Lymphocytes (CBC) 1.8 K/uL (0.7-4.9); Protime INR 1.05
[2023-07-03 17:15] LABS: Magnesium 1.9 mg/dL (1.6-2.4); Potassium 3.7 mEq/L (3.5-5.1); Troponin High Sensitivity 12.7 pg/mL (<58.9)
--- NOTE | 2023-07-03 17:51 | RAD REPORT ---
EXAM DESCRIPTION: CT - Chest For Pe Angio - 07/03/2023 5:34 pm CLINICAL HISTORY: SOB COMPARISON: Extremity Venous Uni Ltd dated 07/03/2023 TECHNIQUE: Dynamically enhanced axial 3 mm thick images of the chest were obtained during administra tion of <100> mL Isovue 370 IV contrast. Coronal and oblique reconstruction images were generated and reviewed. Exam utilizes a protocol for optimal evaluation of pulmonary arterial tree. Maximum intensity projections 3D imaging was utilized All CT scans are performed using dose optimization technique as appropriate and may include automated exposure control or mA/KV adjustment according to patient size. FINDINGS: Chest Wall: No suspicious thyroid nodules or pathologic lymphadenopathy. Lungs: No acute abnormality. Calcified left lower lobe nodule . Pleura: No significant effusions or pneumothorax. Mediastinum/zan: No pathologic lymphadenopathy. Pulmonary arteries/Aorta: Mild pulmonary emboli present bilaterally. This includes in the left distal pulmonary artery and in the segmental right lower lobe pulmonary artery. The clot burden is low. No aortic aneurysm. Heart: No significant pericardial effusion. Normal heart size. Upper abdomen: No acute abnormality. Bones: No acute abnormality. IMPRESSION: Positive for pulmonary embolism. Clot burden is low. No other acute process identified Conveyed to Raffaele Pugh by Dr. Robledo at 1745 on 07/03/23 via electronic communication.
[2023-07-03] MEDS ORDERED: ASPIRIN 81 MG CHEWABLE TABLET ONE (18:26)
[2023-07-03] MEDS ORDERED: RIVAROXABAN 20 MG TABLET PO ONE (18:27)
--- NOTE | 2023-07-03 19:08 | EDPHYS ---
Physician Documentation [facility] Name: Sheng Dominguez Age: 58 yrs Sex: Male : 1965 Arrival Date: 07/03/2023 Time: 15:19 Bed 8 Private MD: ED Physician Jerardo Aguirre HPI: 07/03 15:45 This 58 yrs old Black Male presents to ER via Ambulatory with complaints of Leg cp Swelling. 15:45 The patient presents with pain, that is acute, swelling, tenderness. The complaints cp affect the right lower leg. 15:45 Context: resulted from an unknown cause, the patient can fully bear weight, the patient cp is able to ambulate, with mild difficulty. Onset: The symptoms/episode began/occurred this morning. 15:45 Associated signs and symptoms: Pertinent positives: calf tenderness, exertional cp shortness of breath, Pertinent negatives fever, numbness. Historical: - Allergies: 15:37 No Known Allergies; iw - Home Meds: 15:36 amlodipine 10 mg tab once daily [Active]; iw - PMHx: 15:36 Hypertension; CVA; iw - Immunization history:: Adult Immunizations up to date. - Social history:: Smoking status: Patient denies any tobacco usage or history of. ROS: 15:50 Constitutional: Negative for body aches, chills, fever, poor PO intake, cp 15:50 Eyes: Negative for injury, pain, redness, and discharge, cp 15:50 Cardiovascular: Negative for chest pain, palpitations, 15:50 Respiratory: Positive for shortness of breath, on exertion. Negative for cough, wheezing, 15:50 Abdomen/GI: Negative for abdominal pain, nausea, vomiting, and diarrhea, 15:50 MS/extremity: Positive for swelling, tenderness, of the right lower leg, Negative for injury or acute deformity, decreased range of motion, paresthesias, 15:50 Skin: Negative for rash, 15:50 Neuro: Negative for altered mental status, headache, syncope, near syncope, weakness, cp 15:50 All other systems are negative, Exam: 15:55 Constitutional: The patient appears in no acute distress, alert, awake, cp non-diaphoretic, non-toxic, well developed, well nourished, uncomfortable, 15:55 Head/Face: Normocephalic, atraumatic. cp 15:55 Eyes: Periorbital structures: appear normal, Conjunctiva: normal, no exudate, no injection, Sclera: no appreciated abnormality, Lids and lashes: appear normal, bilaterally, 15:55 ENT: External ear(s): are unremarkable, Nose: is normal, Mouth: Lips: moist, Oral mucosa: pink and intact, moist, Posterior pharynx: is normal, airway is patent, no erythema, no exudate, 15:55 Chest/axilla: Inspection: normal, 15:55 Cardiovascular: Rate: normal, Rhythm: regular, JVD: is not appreciated, 15:55 Respiratory: the patient does not display signs of respiratory distress, Respirations: normal, no use of accessory muscles, no retractions, labored breathing, is not present, Breath sounds: are clear throughout, no decreased breath sounds, no stridor, no wheezing, 15:55 Abdomen/GI: Exam negative for discomfort, distension, guarding, Inspection: abdomen appears normal, 15:55 Back: pain, is absent, ROM is normal, 15:55 Musculoskeletal/extremity: DVT Exam: pain, that is moderate, of the right leg, swelling, that is moderate, of the right leg, tenderness, that is moderate, of the right leg, erythema, that is mild, of the right leg, increased warmth, that is mild, of the right leg, 15:55 Neuro: Orientation: to person, place \T\ time. Mentation: is normal, Motor: moves all fours, strength is normal, Gait: is steady, 18:18 ECG was reviewed by the Attending Physician. cp Vital Signs: 15:37 BP 158 / 72; Pulse 68; Resp 18; Temp 98.9; Pulse Ox 97% on R/A; iw 17:04 BP 140 / 89; Pulse 65; Resp 16; Pulse Ox 99% on R/A; hb 18:20 BP 154 / 106; Pulse 53; Resp 16; Pulse Ox 98% on R/A; hb 18:55 BP 146 / 92; Pulse 50; Resp 17; Pulse Ox 99% on R/A; hb 20:08 BP 160 / 102; Pulse 78; Resp 18; Temp 98.4; Pulse Ox 99% on R/A; Pain 0/10; la4 20:08 Pain Scale: Adult la4 [place] Coma Score: 20:08 Eye Response: spontaneous(4). Motor Response: obeys commands(6). Verbal Response: la4 oriented(5). Total: 15. MDM: 15:46 Patient medically screened. cp 19:06 Data reviewed: vital signs, nurses notes, lab test result(s), EKG, radiologic studies, cp CT scan, plain films, ultrasound, I have discussed the patient's presentation/case with the attending Emergency Department Physician; and as a result, I will discharge patient. 19:06 Differential diagnosis: DVT, kidney failure, CHF, dependent edema, cellulitis. cp Consideration of Admission/Observation Escalation of care including admission/observation considered. I considered the following discharge prescriptions or medication management in the emergency department Medications were administered in the Emergency Department. See MAR. Care significantly affected by the following chronic conditions: Hypertension. Counseling: I had a detailed discussion with the patient and/or guardian regarding the historical points, exam findings, and any diagnostic results supporting the discharge/admit diagnosis, lab results, radiology results, the need for outpatient follow up, a family practitioner, to return to the emergency department if symptoms worsen or persist or if there are any questions or concerns that arise at home. Response to treatment: the patient's symptoms have mildly improved after treatment, and as a result, I will discharge patient. 07/03 15:39 Order name: Basic Metabolic Panel; Complete Time: 17:28 07/03 17:28 Interpretation: Normal except: CL 109; GLUC 109. 07/03 15:39 Order name: CBC with Diff; Complete Time: 17:28 07/03 17:29 Interpretation: Normal except: RBC 4.12; HGB 12.1; HCT 36.3. 07/03 15:39 Order name: Magnesium; Complete Time: 17:28 07/03 15:39 Order name: NT PRO-BNP; Complete Time: 17:28 07/03 15:39 Order name: PT-INR; Complete Time: 17:28 07/03 15:39 Order name: Troponin HS; Complete Time: 17:28 07/03 15:39 Order name: XRAY Chest (1 view); Complete Time: 17:28 07/03 15:39 Order name: US Extremity Venous Unilateral Ltd; Complete Time: 17:28 07/03 17:29 Interpretation: Report reviewed. 07/03 16:32 Order name: CT Chest For PE Angio; Complete Time: 17:51 cp 07/03 15:39 Order name: EKG; Complete Time: 15:39 07/03 15:39 Order name: Cardiac monitoring; Complete Time: 16:46 07/03 15:39 Order name: EKG - Nurse/Tech; Complete Time: 16:35 07/03 15:39 Order name: IV Saline Lock; Complete Time: 16:46 07/03 15:39 Order name: Labs collected and sent; Complete Time: 16:46 07/03 15:39 Order name: O2 Per Protocol; Complete Time: 16:46 07/03 15:39 Order name: O2 Sat Monitoring; Complete Time: 16:46 cp EC:18 Rate is 52 beats/min. Rhythm is regular. VT interval is normal. QRS interval is normal. cp QT interval is normal. T waves are Inverted in lead aVR. Interpreted by me. Reviewed by me. Administered Medications: 18:16 Drug: Aspirin PO Chewable Tablet 81 mg PO once Route: PO; hb 18:16 Drug: Xarelto PO 20 mg PO once Route: PO; hb Disposition: 07/04 08:08 Co-signature as Attending Physician, Jerardo Aguirre MD I reviewed the patient's care rn provided by the Advanced Practice Provider and agree with the diagnosis and treatment plan. Disposition Summary: 07/03/23 19:07 Discharge Ordered Notes: Location: Home cp Problem: new cp Symptoms: have improved cp Condition: Stable cp Diagnosis - Pulmonary embolism without acute cor pulmonale cp - Acute embolism and thrombosis of unspecified deep veins of right lower extremity cp Followup: cp - With: Private Physician - When: 1 week - Reason: Recheck today's complaints Discharge Instructions: - Discharge Summary Sheet cp - Deep Vein Thrombosis cp - Pulmonary Embolism cp - Bleeding Precautions When on Anticoagulant Therapy, Adult cp Forms: - Medication Reconciliation Form cp - Thank You Letter cp - Antibiotic Education cp - Prescription Opioid Use cp - Patient Portal Instructions cp - Leadership Thank You Letter cp Prescriptions: - Xarelto 15 mg Oral tablet - take 1 tablet ORAL route 2 times per day for 21 days; 42 tablet; Refills: 0, cp Product Selection Permitted Signatures: Dispatcher [employer] [place] Tri Hughes RN RN iw Nieto, Roman, MD MD rn Page, Corey, PA PA cp Baxter Emily, RN RN hb
--- NOTE | 2023-07-03 19:08 | ER ---
Nurse's Notes [facility] Name: Sheng Dominguez Age: 58 yrs Sex: Male : 1965 Arrival Date: 07/03/2023 Time: 15:19 Bed 8 Private MD: Diagnosis: Pulmonary embolism without acute cor pulmonale;Acute embolism and thrombosis of unspecified deep veins of right lower extremity Presentation: 07/03 15:36 Chief complaint: Patient states: right leg swelling since this morning. Coronavirus iw screen: At this time, the client does not indicate any symptoms associated with coronavirus-19. Ebola Screen: Patient negative for fever greater than or equal to 101.5 degrees Fahrenheit, and additional compatible Ebola Virus Disease symptoms Patient denies exposure to infectious person. Patient denies travel to an Ebola-affected area in the 21 days before illness onset. No symptoms or risks identified at this time. Initial Sepsis Screen: Does the patient meet any 2 criteria? No. Patient's initial sepsis screen is negative. Does the patient have a suspected source of infection? No. Patient's initial sepsis screen is negative. Risk Assessment: Do you want to hurt yourself or someone else? Patient reports no desire to harm self or others. Onset of symptoms was July 03, 2023. 15:36 Method Of Arrival: Ambulatory iw 15:36 Acuity: SRAVAN 3 iw Historical: - Allergies: 15:37 No Known Allergies; iw - Home Meds: 15:36 amlodipine 10 mg tab once daily [Active]; iw - PMHx: 15:36 Hypertension; CVA; iw - Immunization history:: Adult Immunizations up to date. - Social history:: Smoking status: Patient denies any tobacco usage or history of. Screenin:03 [facility] ED Fall Risk Assessment (Adult) Score/Fall Risk Level 0 - 2 = Low Risk hb Oriented to surroundings, Maintained a safe environment. Abuse screen: Denies threats or abuse. Denies injuries from another. Nutritional screening: No deficits noted. Tuberculosis screening: No symptoms or risk factors identified. Assessment: 16:45 General: Appears in no apparent distress. Behavior is calm, cooperative. Pain: Pain hb currently is 5 out of 10 on a pain scale. Neuro: Level of Consciousness is awake, alert, obeys commands, Oriented to person, place, time, situation. Cardiovascular: Patient's skin is warm and dry. Respiratory: Respiratory effort is even, unlabored, Respiratory pattern is regular, symmetrical. GI: No signs and/or symptoms were reported involving the gastrointestinal system. : No signs and/or symptoms were reported regarding the genitourinary system. EENT: No signs and/or symptoms were reported regarding the EENT system. Derm: Skin is pink, warm \T\ dry. Musculoskeletal: Reports right leg pain and swelling. 17:45 Reassessment: Patient appears in no apparent distress at this time. Patient and/or hb family updated on plan of care and expected duration. Pain level reassessed. Patient is alert, oriented x 3, equal unlabored respirations, skin warm/dry/pink. 18:31 Reassessment: Patient appears in no apparent distress at this time. Patient and/or hb family updated on plan of care and expected duration. Pain level reassessed. Patient is alert, oriented x 3, equal unlabored respirations, skin warm/dry/pink. BP 154/106, NARENDRA Wang notified, no new orders at this time. 20:05 General: Pt given discharge instructions and explained in detail about DVT and when to la4 call 911. Pt verbalized understanding as well as need to call to make follow up appt w/ PCP. . Cardiovascular: No deficits noted. Heart tones S1 S2 Capillary refill < 3 seconds is brisk Patient's skin is warm and dry. Rhythm is sinus rhythm. Vital Signs: 15:37 BP 158 / 72; Pulse 68; Resp 18; Temp 98.9; Pulse Ox 97% on R/A; iw 17:04 BP 140 / 89; Pulse 65; Resp 16; Pulse Ox 99% on R/A; hb 18:20 BP 154 / 106; Pulse 53; Resp 16; Pulse Ox 98% on R/A; hb 18:55 BP 146 / 92; Pulse 50; Resp 17; Pulse Ox 99% on R/A; hb 20:08 BP 160 / 102; Pulse 78; Resp 18; Temp 98.4; Pulse Ox 99% on R/A; Pain 0/10; la4 20:08 Pain Scale: Adult la4 Vitals: 20:08 Cardiac Rhythm Assessment Regular Sinus rhythm. la4 Spickard Coma Score: 20:08 Eye Response: spontaneous(4). Motor Response: obeys commands(6). Verbal Response: la4 oriented(5). Total: 15. ED Course: 15:23 Patient arrived in ED. ts1 15:26 Felipe Pugh PA is PHCP. cp 15:26 Jerardo Aguirre MD is Attending Physician. cp 15:36 Triage completed. iw 15:37 Arm band placed on. iw 16:32 US Extremity Venous Unilateral Ltd In Process Unspecified. EDMS 16:36 XRAY Chest (1 view) In Process Unspecified. EDMS 16:46 Inserted saline lock: 20 gauge in left forearm, using aseptic technique. Blood hb collected. 17:01 Emily Medina, RN is Primary Nurse. hb 17:03 Patient has correct armband on for positive identification. Provided Education on: . hb 17:36 CT Chest For PE Angio In Process Unspecified. EDMS 18:32 Pt sister called asking for update on pt discharge, [place] [phone], nurse notified. rv1 Administered Medications: 18:16 Drug: Aspirin PO Chewable Tablet 81 mg PO once Route: PO; hb 18:16 Drug: Xarelto PO 20 mg PO once Route: PO; hb Medication: 17:04 VIS not applicable for this client. hb Outcome: 19:07 Discharge ordered by . cp 20:09 Patient left the ED. la4 Signatures: Dispatcher [employer] Tri Hughes, GEORGIE JACQUES Felipe Pugh PA PA cp Emily Medina, RN RN Karen Nagy rv1 Swathi Lazo PAS PAS ts1 Don Wyatt RN RN la4
[2023-07-03 20:58] VITALS: TEMP 98.9
[2023-07-03 21:01] VITALS: BP 146/92; O2SAT 99
--- NOTE | 2023-07-10 14:39 | EKG ---
Test Date: 2023-07-03 Test Time: 18:13:09 Cloth Measurer: BERENICE MEASUREMENT RESULTS: Intervals: Rate: 52 MS: 160 QRSD: 84 QT: 394 QTc: 366 [place]: P: 39 MS: 160 QRS: -5 T: 9 INTERPRETIVE STATEMENTS: Sinus bradycardia Otherwise normal ECG Compared to ECG 06/08/2020 03:49:11 Left ventricular hypertrophy no longer present T-wave abnormality no longer present Electronically Signed On 07-10-23 14:19:34 [employer]ES [employer] by Wesley Templeton
== END 2023-07-03 20:09 | disposition home or self-care (01) ==
LOC: ER 15:19
DX: I26.99 Other pulmonary embolism without acute cor pulmonale (principal); I82.401 Acute embolism and thrombosis of unspecified deep veins of right lower extremity; I10 Essential (primary) hypertension; Z86.73 Personal history of transient ischemic attack (TIA), and cerebral infarction without residual deficits
CPT/HCPCS: 93005; 85025; 80048; 36415; 83735; 85610; 84484; 83880; 71275; 71045; 93971; 99284; Q9967

== ENCOUNTER → 2023-09-07 | Emergency (ER) | payer BC ==
--- OUTSIDE RECORDS SUMMARY | 2023-09-07 16:32 | XMS REPORT | Continuity of Care Document ---
Author Name Unknown Address [address] [place] [address] [facility] thconnect Address [address] [place] [address] Care Team Providers Care Educational Fundraising Director Name Role Phone Unknown, Store Manager Primary Care Physician Unava RAYMON Stoner Attending Clinician Unavailable Raymon Jara MD Attending Clinician [phone] Lab, Adc Fam Pob I Attending Clinician Unavailab Festus Macdonald Attending Clinician [phone] FESTUS OLIVIA Attending Clinician Unavailable Doctor Unassigned, [place] Attending Clinician U RAYMON Dewey Admitting Clinician Unavailable Payers Payer Name Policy Type Policy Number Effective Date Expirati on Date Source [facility] [id number] 2020 00:00:00 Problems Condition Name Condition Details Condition Category Status Onset Date Resolution Date Last Treatment Date Treating Clinician Comments Source Stroke Stroke Disease Active 12-11 00:00: 00 [facility] 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 Disease Active 12-11 00:00: 00 [facility] Carotid artery thrombosis Carotid artery thrombosis Disease Active 12-11 00:00: 00 [facility] Allergies, Adverse Reactions, Alerts Allergy Name Allergy Type Status Severity Reaction(s) Onset Date Inactive Date Treating Clinician Comments Source NO KNOWN ALLERGIE S Drug Class Active [facility] Social History Social Habit Start Date Stop Date Quantity Comments Source Exposure to SARS-CoV-2 (event) 2022-10-25 00:00:00 2022-11-04 22:23:00 Not sure [facility] Alcohol intake 2014-01-04 00:00:00 2014-01-04 00:00:00 .48 /d [facility] Sex Ass[birth year] At 1965 00:00:00 1965 00:00:00 [facility] Smoking Status Start Date Stop Date Source Never smoked tobacco [facility] Medications Ordered Medication Name Filled Medication Name Start Date Stop Date Current Medication? Ordering Clinician Indication Dosage Frequency Signature (SIG) Comments Components Source ketorolac (TORADOL) injection 30 mg 11-05 05:30: 00 11-05 04:47 :00 No 30mg 30 mg, Intramuscu lar, ONCE, 1 dose, On Wed11/04/22 at 2330, Routine [facility] HYDROcodone -acetaminop hen (NORCO) 10-325 mg tablet 1 tablet 2021-08 08:15: 00 07-05 06:12 :00 No 1{tbl} 1 tablet, Oral, ONCE NOW, 1 dose, On Wed07/05/22 at 0215, Routine [facility] iopamidol (ISOVUE 370-500 mL) injection 100 mL 2021-08 05:25: 00 07-05 05:24 :00 No [id number] 100mL 100 mL, Intravenou s, ONCE, 1 dose, On 07/05/22 at 0045, Routine [facility] acetaminoph en-codeine 300-30 mg tablet 2021-08 00:00: 00 07-26 05:59 :00 No [id number] 1{tbl} Take 1 tablet by mouth every 6 (six) hours as needed for Pain (scale 4-6) for up to 20 days. Indication s: acute pain [facility] methocarbam oL (ROBAXIN-75 0) 750 mg tablet 2021-08 00:00: 00 07-26 05:59 :00 No [id number] 750mg Take 1 tablet by mouth 4 (four) times daily for 20 days. [facility] amLODIPine (NORVASC) 10 mg tablet 12-13 00:00: 00 Yes 10mg Take 1 Tab by mouth daily. [facility] aspirin 81 mg chewable tablet 12-13 00:00: 00 Yes 81mg Take 1 Tab by mouth daily. [facility] amLODIPine (NORVASC) 10 mg tablet 12-13 00:00: 00 Yes 10mg Take 1 Tab by mouth daily. [facility] aspirin 81 mg chewable tablet 12-13 00:00: 00 Yes 81mg Take 1 Tab by mouth daily. [facility] amLODIPine (NORVASC) 10 mg tablet 12-13 00:00: 00 Yes 10mg Take 1 Tab by mouth daily. [facility] amLODIPine (NORVASC) 10 mg tablet 12-13 00:00: 00 Yes 10mg Take 1 Tab by mouth daily. [facility] aspirin 81 mg chewable tablet 12-13 00:00: 00 Yes 81mg Take 1 Tab by mouth daily. [facility] aspirin 81 mg chewable tablet 12-13 00:00: 00 Yes 81mg Take 1 Tab by mouth daily. [facility] Vital Signs Vital Name Observation Time Observation Value Comments S haley Systolic blood pressure 2022-11-05 04:24:00 136 mm[Hg] [facility] Diastolic blood pressure 2022-11-05 04:24:00 89 mm[Hg] [facility] Heart rate 2022-11-05 04:24:00 70 /min [facility] Body temperature 2022-11-05 04:24:00 36.83 Madeline [facility] Respiratory rate 2022-11-05 04:24:00 16 /min [facility] Oxygen saturation in Arterial blood by Pulse oximetry 2022-11-05 04:24:00 99 /min [facility] Body height 2022-11-05 04:23:00 185.4 cm [facility] Body weight 2022-11-05 04:23:00 113.399 kg [facility] BMI 2022-11-05 04:23:00 32.98 kg/m2 [facility] Systolic blood pressure 2022-07-05 05:45:00 141 mm[Hg] [facility] Diastolic blood pressure 2022-07-05 05:45:00 99 mm[Hg] [facility] Heart rate 2022-07-05 05:45:00 51 /min [facility] Body temperature 2022-07-05 05:45:00 36.67 Madeline [facility] Respiratory rate 2022-07-05 05:45:00 16 /min [facility] Oxygen saturation in Arterial blood by Pulse oximetry 2022-07-05 05:45:00 95 /min [facility] Body height 2022-07-05 04:21:00 185.4 cm [facility] Body weight 2022-07-05 04:21:00 114.533 kg [facility] BMI 2022-07-05 04:21:00 33.31 kg/m2 [facility] Procedures Procedure Date / Time Performed Performing Clinician Source ABORH CONFIRMATION (LAB ONLY) 2022-07-05 06:42:00 Raymon Jara [facility] HB ABO GROUPING 2022-07-05 06:11:00 [facility] TH[facility]AX W CONTRAST 2022-07-05 05:37:00 Raymon Jara [facility] CT TRAUMA THORACIC SPINE WO CONTRAST 2022-07-05 05:37:00 Raymon Jara [facility] CT TRAUMA ABDOMEN PELVIS W CONTRAST 2022-07-05 05:37:00 Raymon Jara [facility] CT TRAUMA LUMBAR SPINE WO CONTRAST 2022-07-05 05:37:00 Raymon Jara [facility] CT TRAUMA HEAD WO CONTRAST 2022-07-05 05:33:00 EstefaniRaymon camacho [facility] CT TRAUMA CERVICAL SPINE WO CONTRAST 2022-07-05 05:33:00 Raymon Jara [facility] LIPASE 2022-07-05 04:47:00 Estefani, Raymon B [facility] HEPATIC FUNCTION PANEL ([id number]) (ALB,T.PRO,BILI T,BU/BC,ALT,AST,ALK PHOS) 2022-07-05 04:47:00 Raymon Jara [facility] BASIC METABOLIC PANEL (NA, K, CL, CO2, GLUCOSE, BUN, CREATININE, CA) 2022-07-05 04:47:00 Raymon Jara [facility] CBC WITHOUT DIFF 2022-07-05 04:47:00 [facility] / INR 2022-07-05 04:47:00 EstefaniBerhane camacho am [facility] ACTIVATED PARTIAL THRMPLAS DB 2022-07-05 04:47:00 Raymon Jara [facility] CONSENT/REFUSAL FOR DIAGNOSIS AND TREATMENT 2022-07-05 04:16:28 Doctor Unassigned, [place] [facility] Encounters Start Date/Time End Date/Time Encounter Type Admission Type Attending [facility] Care Department Encounter ID Source 2022-11-04 22:24:00 2022-11-04 23:24:00 Emergency X RAYMON JARA [facility] ERT [id number] [facility] 2022-11-04 22:24:00 2022-11-04 23:24:00 Emergency Estefani Raymon Mcgrath [facility] [id number] [facility] 2022-07-04 23:25:00 2022-07-05 01:15:00 Emergency X RAYMON JARA [facility] ERT [id number] [facility] 2022-07-04 23:25:00 2022-07-05 01:15:00 Emergency Raymon Jara [facility] ([facility] [id number] [facility] 2020-09-03 17:41:26 2020-09-03 18:01:26 Laboratory Only Lab, Adc Fam Pob I Festus Olivia [facility] [address] [id number] [facility] 2020-09-03 17:40:00 2020-09-03 17:40:00 Outpatient R FESTUS OLIVIA [facility] [id number] [facility] 2020-09-03 00:00:00 2020-09-03 00:00:00 Letter (Out) Doctor Unassigned, [place] [facility] [id number] [facility] Results Test Description Test Time Test Comments Results Result Co mments Source [facility]2022-07-05 06:07:16* Test Item Value Reference Range Interpretation Comme nts ABO & RH (test code = 20) B Positive Performed at [facility] B Laboratory Services - [facility] Blood [address] [place] [id number] Free: [phone] No. [id number] [facility]
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
[2023-09-07 18:55] VITALS: BP 139/89; TEMP 97.6; O2SAT 100
== END ==
LOC: ER 16:29
DX: S91.011A Laceration without foreign body, right ankle, initial encounter (principal); I10 Essential (primary) hypertension; Z86.73 Personal history of transient ischemic attack (TIA), and cerebral infarction without residual deficits
CPT/HCPCS: 99283

== ENCOUNTER 2023-12-18 21:56 | Emergency (ER) | payer BC ==
--- OUTSIDE RECORDS SUMMARY | 2023-12-18 21:59 | XMS REPORT | Continuity of Care Document ---
Author Name Unknown Address [address] [place] [address] [facility] thconnect Address [address] [place] [address] Care Team Providers Care Watcher [employer] Name Role Phone Unknown, Health Care Administrator Primary Care Physician Unava RAYMON Stoner Attending Clinician Unavailable Raymon Jara MD Attending Clinician [phone] Lab, Adc Fam Pob I Attending Clinician Unavailab Festus Macdonald Attending Clinician [phone] FESTUS OLIVIA Attending Clinician Unavailable Doctor Unassigned, [place] Attending Clinician U RAYMON Dewey Admitting Clinician Unavailable Payers Payer Name Policy Type Policy Number Effective Date Expirati on Date Source [facility] [id number] 2020 00:00:00 Problems Condition Name Condition Details Condition Category Status Onset Date Resolution Date Last Treatment Date Treating Clinician Comments Source Stroke Stroke Disease Active 12-11 00:00: 00 [facility] 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 Disease Active 12-11 00:00: 00 [facility] Carotid artery thrombosis Carotid artery thrombosis Disease Active 12-11 00:00: 00 [facility] Allergies, Adverse Reactions, Alerts Allergy Name Allergy Type Status Severity Reaction(s) Onset Date Inactive Date Treating Clinician Comments Source NO KNOWN ALLERGIE S Drug Class Active [facility] Social History Social Habit Start Date Stop Date Quantity Comments Source Exposure to SARS-CoV-2 (event) 2022-10-25 00:00:00 2022-11-04 22:23:00 Not sure [facility] Alcohol intake 2014-01-04 00:00:00 2014-01-04 00:00:00 .48 /d [facility] Sex Ass[birth year] At 1965 00:00:00 1965 00:00:00 [facility] Smoking Status Start Date Stop Date Source Never smoked tobacco [facility] Medications Ordered Medication Name Filled Medication Name Start Date Stop Date Current Medication? Ordering Clinician Indication Dosage Frequency Signature (SIG) Comments Components Source ketorolac (TORADOL) injection 30 mg 11-05 05:30: 00 11-05 04:47 :00 No 30mg 30 mg, Intramuscu lar, ONCE, 1 dose, On Wed11/04/22 at 2330, Routine [facility] HYDROcodone -acetaminop hen (NORCO) 10-325 mg tablet 1 tablet 2021-08 08:15: 00 07-05 06:12 :00 No 1{tbl} 1 tablet, Oral, ONCE NOW, 1 dose, On Wed07/05/22 at 0215, Routine [facility] iopamidol (ISOVUE 370-500 mL) injection 100 mL 2021-08 05:25: 00 07-05 05:24 :00 No [id number] 100mL 100 mL, Intravenou s, ONCE, 1 dose, On 07/05/22 at 0045, Routine [facility] acetaminoph en-codeine 300-30 mg tablet 2021-08 00:00: 00 07-26 05:59 :00 No [id number] 1{tbl} Take 1 tablet by mouth every 6 (six) hours as needed for Pain (scale 4-6) for up to 20 days. Indication s: acute pain [facility] methocarbam oL (ROBAXIN-75 0) 750 mg tablet 2021-08 00:00: 00 07-26 05:59 :00 No [id number] 750mg Take 1 tablet by mouth 4 (four) times daily for 20 days. [facility] amLODIPine (NORVASC) 10 mg tablet 12-13 00:00: 00 Yes 10mg Take 1 Tab by mouth daily. [facility] aspirin 81 mg chewable tablet 12-13 00:00: 00 Yes 81mg Take 1 Tab by mouth daily. [facility] Vital Signs Vital Name Observation Time Observation Value Comments Mamta de leon Systolic blood pressure 2022-11-05 04:24:00 136 mm[Hg] [facility] Diastolic blood pressure 2022-11-05 04:24:00 89 mm[Hg] [facility] Heart rate 2022-11-05 04:24:00 70 /min [facility] Body temperature 2022-11-05 04:24:00 36.83 Madeline [facility] Respiratory rate 2022-11-05 04:24:00 16 /min [facility] Oxygen saturation in Arterial blood by Pulse oximetry 2022-11-05 04:24:00 99 /min [facility] Body height 2022-11-05 04:23:00 185.4 cm [facility] Body weight 2022-11-05 04:23:00 113.399 kg [facility] BMI 2022-11-05 04:23:00 32.98 kg/m2 [facility] Systolic blood pressure 2022-07-05 05:45:00 141 mm[Hg] [facility] Diastolic blood pressure 2022-07-05 05:45:00 99 mm[Hg] [facility] Heart rate 2022-07-05 05:45:00 51 /min [facility] Body temperature 2022-07-05 05:45:00 36.67 Madeline [facility] Respiratory rate 2022-07-05 05:45:00 16 /min [facility] Oxygen saturation in Arterial blood by Pulse oximetry 2022-07-05 05:45:00 95 /min [facility] Body height 2022-07-05 04:21:00 185.4 cm [facility] Body weight 2022-07-05 04:21:00 114.533 kg [facility] BMI 2022-07-05 04:21:00 33.31 kg/m2 [facility] Procedures Procedure Date / Time Performed Performing Clinician Source ABORH CONFIRMATION (LAB ONLY) 2022-07-05 06:42:00 EstefaniRaymon camacho [facility] HB ABO GROUPING 2022-07-05 06:11:00 [facility] 2022-07-05 05:37:00 Setefani, Raymon Mcgrath [facility] CT TRAUMA THORACIC SPINE WO CONTRAST 2022-07-05 05:37:00 Estefani, Raymon Mcgrath [facility] CT TRAUMA ABDOMEN PELVIS W CONTRAST 2022-07-05 05:37:00 Estefani, Raymon Mcgrath [facility] CT TRAUMA LUMBAR SPINE WO CONTRAST 2022-07-05 05:37:00 Estefani, Raymon Mcgrath [facility] CT TRAUMA HEAD WO CONTRAST 2022-07-05 05:33:00 Estefani, Raymon Mcgrath [facility] CT TRAUMA CERVICAL SPINE WO CONTRAST 2022-07-05 05:33:00 EstefaniRaymon camacho [facility] LIPASE 2022-07-05 04:47:00 EstefaniRaymon camacho [facility] HEPATIC FUNCTION PANEL (03461) (ALB,T.PRO,BILI T,BU/BC,ALT,AST,ALK PHOS) 2022-07-05 04:47:00 Raymon Jara [facility] BASIC METABOLIC PANEL (NA, K, CL, CO2, GLUCOSE, BUN, CREATININE, CA) 2022-07-05 04:47:00 EstefaniRaymon camacho [facility] CBC WITHOUT DIFF 2022-07-05 04:47[facility]R 2022-07-05 04:47:00 EstefaniBerhane camacho am [facility] ACTIVATED PARTIAL THRMPLAS DB 2022-07-05 04:47:00 EstefaniRaymon camacho [facility] CONSENT/REFUSAL FOR DIAGNOSIS AND TREATMENT 2022-07-05 04:16:28 Doctor Unassigned, [place] [facility] Encounters Start Date/Time End Date/Time Encounter Type Admission Type Attending [facility] Care Facility Care Department Encounter ID Source 2022-11-04 22:24:00 2022-11-04 23:24:00 Emergency X RAYMON JARA [facility] ERT [id number] [facility] 2022-11-04 22:24:00 2022-11-04 23:24:00 Emergency Raymon Jara [facility] ([facility]) [id number] [id number] [facility] 2022-07-04 23:25:00 2022-07-05 01:15:00 Emergency X RAYMON JARA [facility] ERT [id number] [facility] 2022-07-04 23:25:00 2022-07-05 01:15:00 Emergency Raymon Jara [facility] ([facility]) 1..114 [id number] [facility] 2020-09-03 17:41:26 2020-09-03 18:01:26 Laboratory Only Lab, Adc Fam Pob Gary [facility] [address] 1..114 [id number] [facility] 2020-09-03 17:40:00 2020-09-03 17:40:00 Outpatient R FESTUS OLIVIA [facility] [id number] [facility] 2020-09-03 00:00:00 2020-09-03 00:00:00 Letter (Out) Doctor Unassigned, [place] [facility] [id number] [id number] [facility] Results Test Description Test Time Test Comments Results Result Co mments [facility]2022-07-05 06:07:16* Test Item Value Reference Range Interpretation Comme nts ABO & RH (test code = 20) B Positive Performed at [facility] B Laboratory Services - [facility] [id number] [place], [place] [address]Abbj Free: [phone] No. [id number] [facility]
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
[2023-12-18] MEDS ORDERED: RIVAROXABAN 10 MG TABLET ONE (23:59)
[2023-12-19] MEDS ORDERED: HYDROCODONE/APAP 5/325 MG TAB ONE (00:11)
[2023-12-19 01:14] VITALS: BP 160/99; TEMP 98.2; O2SAT 99
--- NOTE | 2023-12-19 19:44 | RAD REPORT ---
EXAM DESCRIPTION: US - Extremity Venous Uni Ltd - 12/18/2023 10:49 pm CLINICAL HISTORY: Pain; Swelling TECHNIQUE: Real-time duplex ultrasound scan of the right lower extremity veins integrating B-mode tw o-dimensional vascular structure, Doppler spectral analysis, color flow Doppler imaging and compressi on. COMPARISON: No relevant prior studies available. FINDINGS: Deep veins: Intraluminal thrombus with lack of compressibility and flow involving the di stal right femoral, right popliteal and right posterior tibial veins. The right common femoral, proxi mal profunda femoral and proximal to mid femoral veins are patent with normal compressibility, flow a nd waveforms. Superficial veins: Unremarkable. No thrombus in the visualized great saphenous vein. Soft tissues: Subcutaneous soft tissue edema. No popliteal cyst. IMPRESSION: Occlusive deep venous thrombus involving the distal right femoral, right popliteal and r ight posterior tibial veins. THIS REPORT CONTAINS FINDINGS THAT MAY BE CRITICAL TO PATIENT CARE: The findings were verbally discus sed via telephone conference with FRANCOIS Espinal on 12/18/2023 11:24 PM CDT. The results were ac knowledged and understood. Electronically signed by: Alana Akbar MD 12/18/2023 11:24 PM CDT Due to temporary technical issues with the PACS/Fluency reporting system, reports are being signed by the in house radiologists without review as a courtesy to insure prompt reporting. The interpreting radiologist is fully responsible for the content of the report.
== END 2023-12-19 00:19 | disposition home or self-care (01) ==
LOC: ER 21:56
DX: I82.491 Acute embolism and thrombosis of other specified deep vein of right lower extremity (principal); I10 Essential (primary) hypertension
CPT/HCPCS: 93971; 99284

== ENCOUNTER 2024-07-27 22:15 | Emergency (ER) | payer BC, SELFPAY ==
[2024-07-27] MEDS ORDERED: HYDROCODONE/APAP 7.5/325 MG TAB ONE (22:40)
--- NOTE | 2024-07-28 00:38 | ER ---
Nurse's Notes 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 22:21 Coronavirus screen: Vaccine status: At this time, the client does not indicate any ha1 symptoms associated with coronavirus-19. Ebola Screen: No symptoms or risks identified at this time. Initial Sepsis Screen: Does the patient meet any 2 criteria? No. Patient's initial sepsis screen is negative. Does the patient have a suspected source of infection? No. Patient's initial sepsis screen is negative. Risk Assessment: Do you want to hurt yourself or someone else? Patient reports no desire to harm self or others. Onset of symptoms was July 27, 2024. 22:21 Method Of Arrival: Wheelchair ha1 22:21 Acuity: SRAVAN 3 ha1 Triage Assessment: 22:21 General: Appears uncomfortable, Behavior is cooperative. Pain: Complains of pain in ha1 medial aspect of right calf Pain does not radiate. Pain currently is 10 out of 10 on a pain scale. Quality of pain is described as aching, Pain began gradually. Neuro: Level of Consciousness is awake, alert, obeys commands, Oriented to person, place, time, situation. Cardiovascular: Patient's skin is warm and dry. Respiratory: Airway is patent Respiratory effort is even, unlabored, Respiratory pattern is regular, symmetrical. Historical: - Allergies: 22:35 No Known Allergies; ha1 - Home Meds: 22:35 amlodipine 10 mg tab once daily [Active]; ha1 - PMHx: 22:35 CVA; Hypertension; BLOOD CLOT ON THE RIGHT LOWER LEG (2023); ha1 - Immunization history:: Adult Immunizations not up to date. - Infectious Disease History:: Denies. - Social history:: Smoking status: Patient denies any tobacco usage or history of. Screenin:21 [facility] ED Fall Risk Assessment (Adult) History of falling in the last 3 months, rg5 including since admission Confusion or Disorientation No (0 pts) Intoxicated or Sedated No (0 pts) Impaired Gait No (0 pts) Mobility Assist Device Used No (0 pt) Altered Elimination No (0 pt) Score/Fall Risk Level 0 - 2 = Low Risk Oriented to surroundings, Maintained a safe environment, Hourly rounding (assess needs \T\ fall precautionary measures) done. Abuse screen: Denies threats or abuse. Nutritional screening: No deficits noted. Tuberculosis screening: No symptoms or risk factors identified. Assessment: 22:21 General: Appears in no apparent distress. Behavior is calm, cooperative. rg5 22:21 Pain: Complains of pain in posterior aspect of right knee Pain currently is 10 out of rg5 10 on a pain scale. Quality of pain is described as aching. Neuro: Level of Consciousness is awake, alert, Oriented to person, place, time. Cardiovascular: Denies chest pain, Heart tones S1 S2. Respiratory: Airway is patent Trachea midline Respiratory effort is even, unlabored, Respiratory pattern is regular, symmetrical. GI: Abdomen is round non-distended, Bowel sounds present X 4 quads. Abd is soft and non tender. : No signs and/or symptoms were reported regarding the genitourinary system. EENT: No deficits noted. Derm: Skin is intact, Skin is dry, Skin is normal, Skin temperature is warm. Musculoskeletal: Circulation, motion, and sensation intact. Range of motion: intact in all extremities. 23:30 Reassessment: Patient and/or family updated on plan of care and expected duration. Pain rg5 level reassessed. Patient is alert, oriented x 3, equal unlabored respirations, skin warm/dry/pink. Patient states feeling better. Patient states symptoms have improved. 07/28 00:16 Reassessment: Patient and/or family updated on plan of care and expected duration. Pain rg5 level reassessed. Patient is alert, oriented x 3, equal unlabored respirations, skin warm/dry/pink. Patient states symptoms have improved. Vital Signs: 07/27 22:21 BP 155 / 100; Pulse 78; Resp 18 S; Temp 98.2; Pulse Ox 98% on R/A; Weight 117.93 kg; ha1 Height 6 ft. 1 in. ; 22:21 BP 155 / 100; Pulse 78; Resp 18; Temp 98.2; Pulse Ox 98% on R/A; rg5 23:22 BP 150 / 89; Pulse 75; Resp 17; Pulse Ox 99% on R/A; rg5 07/28 00:15 BP 140 / 84; Pulse 76; Resp 17; Pulse Ox 97% on R/A; rg5 07/27 22:21 Body Mass Index 34.30 (117.93 kg, 185.42 cm) ha1 ED Course: 07/27 22:18 Patient arrived in ED. gm2 22:19 Monika Forte PA-C is PHCP. sb4 22:20 Navdeep Swann MD is Attending Physician. sb4 22:21 Patient has correct armband on for positive identification. Placed in gown. Call light rg5 in reach. Side rails up X 1. Door closed. Noise minimized. Warm blanket given. Verbal reassurance given. 22:21 No provider procedures requiring assistance completed. rg5 22:22 Arm band placed on. rg5 22:24 Olayinka Llamas, GEORGIE is Primary Nurse. rg5 22:35 Triage completed. ha1 23:33 Extremity Venous Uni Ltd US In Process Unspecified. EDGA 07/28 00:49 Provided Education on: POST ER CARE DONE. rg5 00:49 Patient did not have IV access during this emergency room visit. rg5 Administered Medications: 07/27 22:30 Drug: Hydrocodone-Acetaminophen PO (7.5 mg-325 mg) 1 tabs PO once Route: PO; rg5 23:00 Follow up: Response: No adverse reaction; Pain is decreased rg5 07/28 00:40 Drug: Enoxaparin Sub-Q 1 mg/kg Sub-Q once Route: Sub-Q; Site: right lower abdomen; rg5 00:49 Follow up: Response: No adverse reaction rg5 Medication: 07/27 22:21 VIS not applicable for this client. rg5 Outcome: 07/28 00:38 Discharge ordered by . sb4 00:49 Discharged to home ambulatory, rg5 00:49 Condition: stable 00:49 Discharge instructions given to patient, family, Instructed on discharge instructions, follow up and referral plans. Demonstrated understanding of instructions, follow-up care, medications, Prescriptions given X 2, 00:50 Patient left the ED. rg5 Signatures: Dispatcher [employer] [facility] Shannan Hines RN RN ha1 Monika Forte, GISELE PABreannC sb4 Yue Granados gm2 Olayinka Llaams, RN RN rg5
--- NOTE | 2024-07-28 00:38 | EDPHYS ---
Physician Documentation [facility] Name: Sheng Dominguez Age: 59 yrs Sex: Male : 1965 Arrival Date: 07/27/2024 Time: 22:15 Bed 20 Private MD: ED Physician Navdeep Swann HPI: 07/27 22:30 This 59 yrs old Black Male presents to ER via Unassigned with complaints of Leg Pain - sb4 right. 22:30 The patient presents with pain, swelling. The complaints affect the right knee and sb4 right kaplan. patient reports history of DVT RLE, diagnosed 6 months ago. has been taking xarelto, but inconsistently. has not had it checked since. denies any chest pain or shortness of breath. Historical: - Allergies: 22:35 No Known Allergies; ha1 - Home Meds: 22:35 amlodipine 10 mg tab once daily [Active]; ha1 - PMHx: 22:35 CVA; Hypertension; BLOOD CLOT ON THE RIGHT LOWER LEG (2023); ha1 - Immunization history:: Adult Immunizations not up to date. - Infectious Disease History:: Denies. - Social history:: Smoking status: Patient denies any tobacco usage or history of. ROS: 22:30 Constitutional: Negative for fever, chills, and weight loss, sb4 22:30 MS/extremity: Positive for pain, swelling, of the right leg, 22:30 All other systems are negative, Exam: 22:30 Head/Face: Normocephalic, atraumatic. Eyes: Extra-ocular motions intact. Periorbital sb4 areas with no swelling, redness, or edema. ENT: Mucous membranes moist. Cardiovascular: Regular rate and rhythm with a normal S1 and S2. Respiratory: No increased work of breathing, no retractions or nasal flaring. 22:30 Constitutional: The patient appears alert, awake, in obvious pain, 22:30 Musculoskeletal/extremity: DVT Exam: no appreciated bluish discoloration, no erythema, no increased warmth, pain, swelling, tenderness, Vital Signs: 22:21 BP 155 / 100; Pulse 78; Resp 18 S; Temp 98.2; Pulse Ox 98% on R/A; Weight 117.93 kg; ha1 Height 6 ft. 1 in. ; 22:21 BP 155 / 100; Pulse 78; Resp 18; Temp 98.2; Pulse Ox 98% on R/A; rg5 23:22 BP 150 / 89; Pulse 75; Resp 17; Pulse Ox 99% on R/A; rg5 07/28 00:15 BP 140 / 84; Pulse 76; Resp 17; Pulse Ox 97% on R/A; rg5 07/27 22:21 Body Mass Index 34.30 (117.93 kg, 185.42 cm) ha1 MDM: 07/27 22:24 Medical Screening Exam initiated sb4 22:35 ED course: per chart review, patient was initially diagnosed with a DVT of R popliteal sb4 and posterior tibial on 07/03/23, did not take his full course of xarelto. was seen here again on 12/19/23 and clot had extended into distal femoral vein. 07/28 00:40 ED course: Ultrasound shows DVT that is present to the right mid femoral vein. Patient sb4 admits that he does miss his dose of Xarelto 1-2 times a week. I counseled him on the importance of daily regimen or clot will continue to worsen. He understands. 00:40 Data reviewed: vital signs, nurses notes, radiologic studies, and as a result, I will sb4 discharge patient. Historians other than the Patient: Daughter/Son: Daughter. Counseling: I had a detailed discussion with the patient and/or guardian regarding the historical points, exam findings, and any diagnostic results supporting the discharge/admit diagnosis, radiology results, the need for outpatient follow up, for definitive care, to return to the emergency department if symptoms worsen or persist or if there are any questions or concerns that arise at home. 07/27 22:29 Order name: Extremity Venous Uni Ltd sb4 Administered Medications: 07/27 22:30 Drug: Hydrocodone-Acetaminophen PO (7.5 mg-325 mg) 1 tabs PO once Route: PO; rg5 23:00 Follow up: Response: No adverse reaction; Pain is decreased rg5 07/28 00:40 Drug: Enoxaparin Sub-Q 1 mg/kg Sub-Q once Route: Sub-Q; Site: right lower abdomen; rg5 00:49 Follow up: Response: No adverse reaction rg5 Disposition: 01:52 Co-signature as Attending Physician, Navdeep Swann MD I agree with the assessment sp4 and plan of care. I reviewed the patient's care provided by Advanced Practice Provider \T\ agree w/ the diagnosis \T\ care plan. I personally saw the pt \T\ performed a substantive portion of the visit, incldng all aspects of the (History/Exam/Medical Decision Making). Disposition Summary: 07/28/24 00:38 Discharge Ordered Notes: Location: Home sb4 Problem: new sb4 Symptoms: have improved sb4 Condition: Stable sb4 Diagnosis - Chronic embolism and thrombosis of other specified deep vein of right lower sb4 extremity Followup: sb4 - With: Private Physician - When: 2 - 3 days - Reason: Recheck today's complaints, Re-evaluation by your physician Discharge Instructions: - Discharge Summary Sheet sb4 - Deep Vein Thrombosis sb4 Forms: - Prescription Opioid Use sb4 - Patient Portal Instructions sb4 - Leadership Thank You Letter sb4 Prescriptions: - acetaminophen-codeine 300-30 mg Oral tablet - take 1 tablet ORAL route every 6 hours as needed for pain; 12 tablet; Refills: sb4 0, Product Selection Permitted - Ibuprofen 800 mg Oral Tablet - take 1 tablet ORAL route every 12 hours As needed take with food; 20 tablet; sb4 Refills: 0, Product Selection Permitted Signatures: Dispatcher [employer] EDShannan Cornejo, RN RN ha1 Monika Forte, GISELE PABreannC sb4 Navdeep Swann MD MD sp4 Olayinka Llamas RN RN rg5 Corrections: (The following items were deleted from the chart) 07/27 22:29 22:29 Extremity Venous Uni Ltd+[email or web address] ordered. EDMS EDMS
[2024-07-28] MEDS ORDERED: ENOXAPARIN 100 MG/ML SYR SQ ONE (00:42)
[2024-07-28 01:23] VITALS: TEMP 98.2
[2024-07-28 01:26] VITALS: BP 140/84; O2SAT 97
--- NOTE | 2024-07-28 06:25 | RAD REPORT ---
ADDENDUM #1 THIS REPORT CONTAINS FINDINGS THAT MAY BE CRITICAL TO PATIENT CARE: The findings were verbally discus sed via telephone conference with Monika Forte at 12:26 AM TECHNICAL APPLICATIONS SPECIALIST on 07/28/2024. Electronically signed by: Jovany Todd MD 07/28/2024 04:01 AM [facility] RP End of Addendum EXAM DESCRIPTION: US EXTREMITY VEINS UNILATERAL 07/27/2024 11:51 PM TECHNICAL APPLICATIONS SPECIALIST CLINICAL HISTORY: 59 years, Male, Pain, swelling, DVT in right superficial femoral vein. COMPARISON: None. FINDINGS: Multiple grayscale images as well as duplex Doppler ultrasound with a color flow and spectral wavefor m of right lower extremity was performed. Imaging demonstrate lack of compression within the right mid femoral vein with partial flow. There is lack of compression within the right popliteal vein with lack of flow. Right common femoral vein, right superficial femoral vein proximal and distal aspect, right posterior tibial and peroneal veins at the level calf were imaged. Spectral waveform demonstrate normal compressibility and phasicity. No intraluminal defects were seen. IMPRESSION: Deep venous thrombosis within the right mid femoral vein and right popliteal vein. Electronically signed by: Jovany Todd MD 07/28/2024 12:22 AM [facility] Due to temporary technical issues with the PACS/[employer] reporting system, reports are being damaso d by the in-house radiologist without review as a courtesy to ensure prompt reporting the interpreting radiologist is fully responsible for the content of the report. Transcribed Date/Time: 07/28/2024 6:25 AM
== END 2024-07-28 00:50 | disposition home or self-care (01) ==
LOC: ER 22:15
DX: I82.591 Chronic embolism and thrombosis of other specified deep vein of right lower extremity (principal)
CPT/HCPCS: 93971; J1650